=== PATIENT | female | born 1965 | race Caucasian/White ===

== ENCOUNTER 2016-06-11 20:40 | Inpatient (IN) | payer OTHER ==
[2016-06-11] MEDS ORDERED: NARCAN IV ONE (21:05)
--- NOTE | 2016-06-11 21:08 | PROVIDER DOCUMENTATION ---
HPI-General Adult - General Chief Complaint: Altered Mental Status Stated Complaint: AMS Time Seen by Provider: 06/11/16 20:54 Source: patient, EMS, RN notes reviewed, old records Allergies/Adverse Reactions: Patient Allergies Allergy/AdvReac Type Severity Reaction Status Date / Time sulfamethoxazole Allergy ITCHING Verified 06/11/16 20:44 [From Bactrim] trimethoprim [From Bactrim] Allergy ITCHING Verified 06/11/16 20:44 Home Medications: Amitriptyline HCl 50 mg PO QHS 11/29/15 Clonazepam 0.5 mg PO QHS 11/29/15 Escitalopram Oxalate [Lexapro] 20 mg PO DAILY 11/29/15 Ferrous Sulfate 325 mg PO DAILY 11/29/15 Losartan Potassium 50 mg PO TID 11/29/15 Metoprolol Tartrate 50 mg PO BID 11/29/15 Pregabalin [Lyrica] 100 mg PO QHS 11/29/15 ATORVAstatin [Lipitor] 80 mg PO DAILY 11/30/15 Aspirin [Ecotrin] 325 mg PO DAILY 11/30/15 Clopidogrel Bisulfate [Plavix] 75 mg PO DAILY 11/30/15 Desmopressin Acetate [Ddavp] 0.2 mg PO DAILY 11/30/15 Fenofibrate [Tricor] 145 mg PO DAILY 11/30/15 Furosemide [Lasix] 20 mg PO BID 11/30/15 Hydralazine HCl 25 tab PO TID 11/30/15 Pantoprazole [Protonix] 40 tab PO DAILY 11/30/15 Ropinirole HCl [Requip] 1 mg PO QHS 11/30/15 Clonidine [Catapres] 0.1 mg PO PRN PRN 05/23/16 Diclofenac Potassium 50 mg PO BID 05/23/16 Hydroxyzine HCl 25 mg PO PRN PRN 05/23/16 Ibuprofen 800 mg PO TID PRN PRN 05/23/16 Promethazine [Phenergan] 25 mg PO Q6H PRN PRN 05/23/16 - History of Present Illness -Gen Adult Nature of Presenting Problems: Pt is a 50 y/o F c chief complaint of AMS. She was brought to the ER today by EMS after they were notified by her [employer] company. Per EMS, pt was naked at home and very lethargic. Their finger stick blood sugar showed >500. On arrival a the ER, pt is slow to respond and unable to answer orientation questions. Pt was seen at [facility] last night for complaint of lower back pain after falling forward from her wheelchair onto a bed. She was discharged last night c prescriptions for xanaflex, tylenol c codeine, and NSAIDs. Per nursing, pt's family last night had stated that pt has a h/o overdosing on prescription medications. Pt's hx includes CVA c L sided deficit and diabetes. Pt lives at home c family. Review of Systems - Adult - REVIEW OF SYSTEMS - ADULT ROS:: limited per condition Constitutional: reports: no symptoms reported Eyes: reports: no symptoms reported Ears, Nose, Mouth & Throat: reports: no symptoms reported Cardiovascular: reports: no symptoms reported Respiratory: reports: no symptoms reported Gastrointestinal: reports: no symptoms reported Genitourinary: reports: no symptoms reported Musculoskeletal: reports: no symptoms reported Integumentary: reports: no symptoms reported Neurological: reports: no symptoms reported Psychiatric: reports: no symptoms reported Endocrine: reports: no symptoms reported Hematologic/Lymphatic: reports: no symptoms reported Allergic/Immunologic: reports: no symptoms reported All Other Systems: Reviewed and Negative Past History - Adult - PAST MEDICAL HISTORY-ADULT Review of Records: reports: Old Records Reviewed, Nursing Assessment Review, Medications Reviewed, Social history reviewed & non-contributory. Major Childhood Illnesses: reports: denies history Cardiovascular: reports: CAD, HTN, palpitations, PVD Respiratory: reports: COPD Gastrointestinal: reports: GERD Obstetrical/Gynecological: reports: denies history Genitourinary: reports: denies history Musculoskeletal: reports: chronic pain, fibromyalgia Neurological: reports: CVA Psychiatric: reports: anxiety, depression Endocrine/Immune: reports: Diabetes Other Conditions: reports: denies history - PRIOR SURGERIES/PROCEDURES Surgical/Procedure History: reports: reviewed, not pertinent - PRIOR HOSPITALIZATIONS Prior Hospitalizations: reports: none - IMMUNIZATION STATUS Childhood Immunizations: See Nurse Assessment Flu Vaccine: See Nurse Assessment - FAMILY HISTORY Family History: reviewed, not pertinent Physical Exam-General - PHYSICAL EXAM-ADULT Initial Vital Signs Reviewed: Yes - CONSTITUTIONAL General Appearance: moderate distress, obese, slow to respond - EYES Eyes: pink conjunctivae, other (sluggish pupil response, disconjugate gaze) - HEAD, EARS, NOSE, MOUTH & THROAT HENMT: normocephalic/atraumatic, moist mucous membranes, normal ENT inspection - NECK Neck: non-tender - RESPIRATORY Respiratory: chest non-tender, lungs clear, normal breath sounds - CARDIOVASCULAR Cardiovascular: normal peripheral pulses, regular rate, rhythm, no edema - GASTROINTESTINAL (ABDOMEN) Abdominal Exam: normal bowel sounds, non tender, soft - LYMPHATIC Lymphatic: no adenopathy - MUSCULOSKELETAL Back Exam: normal inspection, no CVA tenderness, no vertebral tenderness Extremity: non-tender - SKIN Integumentary: normal color, normal turgor, warm/dry - NEUROLOGIC Neurologic: other (pt unable to participate in neuro exam due to ams) - PSYCHIATRIC Psych/Mental Status: other (pt altered and unable to assess psych) Progress - PLAN OF CARE/RESULTS Progress/Plan/Lab Results: Orders Category Date Time Status Admit - [facility] Routine AdmDCTranf 06/11/16 23:15 Ordered Activity - Strict Bedrest ORDERED Care 06/11/16 23:15 Active Apply Mechanical Device [QM] ORDERED Care 06/11/16 23:17 Active Call Admitting on Arrival AT ADMISSION Care 06/11/16 23:15 Active Cardiac Monitoring DIRECTED Care 06/11/16 21:02 Active Finger Stick Blood Sugar (ED) DIRECTED Care 06/11/16 21:02 Active Finger Stick Blood Sugar (ED) Q 4-HR ASSESS Care 06/11/16 23:18 [address] [place] Insertion ORDERED Care 06/11/16 21:19 Active Neurological Check q4h Care 06/11/16 23:15 Active Oxygen Therapy- ED Nursing DIRECTED Care 06/11/16 21:02 Active Saline Loc NOW Care 06/11/16 21:02 Active Vital Signs Order ROUTINE Care 06/11/16 23:15 Active Diabetic Diet Diet 06/11/16 23:16 Active CHEST-1 VIEW [RAD] Stat Exams 06/11/16 21:03 Taken HEAD W/O CONTRAST [CT] Stat Exams 06/11/16 21:03 Taken ABG [RESP] Routine Lab 06/11/16 21:31 Completed ACETONE SERUM [CHEM] Stat Lab 06/11/16 21:17 Completed ALCOHOL BLOOD Stat Lab 06/11/16 21:17 Completed CBC WITH ELECTRONIC DIFF [HEME] Stat Lab 06/11/16 21:17 Completed COMPREHENSIVE METABOLIC PANEL [CHEM] Stat Lab 06/11/16 21:17 Completed LACTATE, PLASMA [CHEM] Stat Lab 06/11/16 21:17 Completed [address]IME WITH INR PL [COAG] Stat Lab 06/11/16 21:[address] [COAG] Stat Lab 06/11/16 21:17 Completed TROPONIN T Stat Lab 06/11/16 21:[address] W/POSS RFLX CULT [URINALYSIS] Stat Lab 06/11/16 21:17 Completed URINE CULTURE [RM] Routine Lab 06/11/16 21:55 Ordered URINE DRUG SCREEN PL Stat Lab 06/11/16 21:17 Completed 0.9% Sodium Chloride Inj [Ns] 1,000 ml Med 06/11/16 23:15 Ordered IV 90 mls/hr 0.9% Sodium Chloride Inj [Ns] 1,000 ml Med 06/11/16 22:24 Active IV 999 mls/hr CefTRIAXONE 1 GM/NS [Rocephin 1 gm/Ns] 50 ml Med 06/11/16 23:13 Active IV NOW Clindamycin 600 mg/Ns 50 ml Med 06/11/16 23:13 Active IV NOW Insulin Human Reg Dose ([address] [Humulin R Dose ([facility] Med 06/11/16 23:07 Discontinued )] 1 dose .ROUTE .STK-MED ONE Insulin Human Regular ([facility] [Humulin R ([facility])] Med 06/11/16 23:17 Discontinued See Protocol IV NOW ONE Insulin Human Regular [Humulin R] Med 06/11/16 22:24 Discontinued 10 unit IV NOW ONE Naloxone [Narcan] Med 06/11/16 21:05 Discontinued 0.2 mg IV NOW ONE Ondansetron [Zofran] Med 06/11/16 23:15 Active 4 mg IV Q4H PRN PRN Pulse Oximetry Stat Oth 06/11/16 21:02 Completed Telemetry [OM.EQ] Routine Oth 06/11/16 23:15 Active EKG [EKG] Stat Ther 06/11/16 21:02 Draft Laboratory Tests 06/11/16 06/11/16 06/11/16 21:17 21:17 21:17 WBC RBC Hgb Hct MCV MCH MCHC RDW Std Deviation Plt Count MPV Immature Gran % (Auto) Neut % (Auto) Lymph % (Auto) [place] % (Auto) Eos % (Auto) Baso % (Auto) Immature Gran # (Auto) Neut # (Auto) Lymph # (Auto) [place] # (Auto) Eos # (Auto) Baso # (Auto) PT INR APTT (Factor Assay) Specimen Type Sample Site pH pCO2 pO2 HCO3 Base Excess Oxyhemoglobin ABG O2 Sat (Calculated) ABG O2 Saturation ABG Carboxyhemoglobin ABG Methemoglobin Keyon Test A-a O2 Difference Total Hemoglobin Lactate Liter Flow Blood Gas Modality FiO2 % Sodium 127 L Potassium 5.0 Chloride 88 L Carbon Dioxide 23 L Anion Gap 16 BUN 34 H Creatinine 1.4 H Estimated GFR/1.73 m2 39 BUN/Creatinine Ratio 24 Glucose 755 H* Calculated Osmolality 299 Calcium 10.6 H Total Bilirubin 0.80 AST 28 ALT 38 H Alkaline Phosphatase 106 H Troponin T < 0.010 Total Protein 7.4 Albumin 4.2 Globulin 3.0 Albumin/Globulin Ratio 1.0 Plasma Lactate 3.5 H Urine Source Urine Color Urine Clarity Urine pH Ur Specific Gill Urine Protein Urine Ketones Urine Blood Urine Nitrite Urine Bilirubin Urine Urobilinogen Urine Microscopic RBC Urine WBC Urine Microscopic WBC Ur Epithelial Cells Urine Bacteria Urine Glucose Urine Opiates Screen Ur Oxycodone Screen Urine Methadone Screen Ur Barbituates Screen Ur Tricyclics Screen Ur Phencyclidine Scrn Ur Amphetamines Screen U Methamphetamines Scrn Urine MDMA Screen U Benzodiazepines Scrn Urine Cocaine Screen U Cannabinoids Screen Plasma/Serum Ethyl Alc Acetone Level 06/11/16 06/11/16 06/11/16 21:17 21:17 21:17 WBC 11.17 H RBC 4.14 L Hgb 11.3 L Hct 33.6 L MCV 81.2 MCH 27.3 MCHC 33.6 RDW Std Deviation 12.9 Plt Count 235 MPV 11.1 H Immature Gran % (Auto) 0.2 Neut % (Auto) 83.9 H Lymph % (Auto) 7.7 L [place] % (Auto) 8.1 Eos % (Auto) 0.1 Baso % (Auto) 0.0 Immature Gran # (Auto) 0.02 Neut # (Auto) 9.38 H Lymph # (Auto) 0.86 L [place] # (Auto) 0.90 H Eos # (Auto) 0.01 Baso # (Auto) 0.00 PT 14.1 INR 1.06 APTT (Factor Assay) 31.7 Specimen Type Sample Site pH pCO2 pO2 HCO3 Base Excess Oxyhemoglobin ABG O2 Sat (Calculated) ABG O2 Saturation ABG Carboxyhemoglobin ABG Methemoglobin Keyon Test A-a O2 Difference Total Hemoglobin Lactate Liter Flow Blood Gas Modality FiO2 % Sodium Potassium Chloride Carbon Dioxide Anion Gap BUN Creatinine Estimated GFR/1.73 m2 BUN/Creatinine Ratio Glucose Calculated Osmolality Calcium Total Bilirubin AST ALT Alkaline Phosphatase Troponin T Total Protein Albumin Globulin Albumin/Globulin Ratio Plasma Lactate Urine Source Urine Color Urine Clarity Urine pH Ur Specific Gill Urine Protein Urine Ketones Urine Blood Urine Nitrite Urine Bilirubin Urine Urobilinogen Urine Microscopic RBC Urine WBC Urine Microscopic WBC Ur Epithelial Cells Urine Bacteria Urine Glucose Urine Opiates Screen Ur Oxycodone Screen Urine Methadone Screen Ur Barbituates Screen Ur Tricyclics Screen Ur Phencyclidine Scrn Ur Amphetamines Screen U Methamphetamines Scrn Urine MDMA Screen U Benzodiazepines Scrn Urine Cocaine Screen U Cannabinoids Screen Plasma/Serum Ethyl Alc Acetone Level 06/11/16 06/11/16 06/11/16 21:17 21:17 21:17 WBC RBC Hgb Hct MCV MCH MCHC RDW Std Deviation Plt Count MPV Immature Gran % (Auto) Neut % (Auto) Lymph % (Auto) [place] % (Auto) Eos % (Auto) Baso % (Auto) Immature Gran # (Auto) Neut # (Auto) Lymph # (Auto) [place] # (Auto) Eos # (Auto) Baso # (Auto) PT INR APTT (Factor Assay) Specimen Type Sample Site pH pCO2 pO2 HCO3 Base Excess Oxyhemoglobin ABG O2 Sat (Calculated) ABG O2 Saturation ABG Carboxyhemoglobin ABG Methemoglobin Keyon Test A-a O2 Difference Total Hemoglobin Lactate Liter Flow Blood Gas Modality FiO2 % Sodium Potassium Chloride Carbon Dioxide Anion Gap BUN Creatinine Estimated GFR/1.73 m2 BUN/Creatinine Ratio Glucose Calculated Osmolality Calcium Total Bilirubin AST ALT Alkaline Phosphatase Troponin T Total Protein Albumin Globulin Albumin/Globulin Ratio Plasma Lactate Urine Source CATH Urine Color YELLOW Urine Clarity CLEAR Urine pH 5.0 Ur Specific Gill 1.005 Urine Protein TRACE A Urine Ketones NEGATIVE Urine Blood 4+ Urine Nitrite NEGATIVE Urine Bilirubin NEGATIVE Urine Urobilinogen NORMAL Urine Microscopic RBC 10-20 A Urine WBC TRACE A Urine Microscopic WBC <10 Ur Epithelial Cells <10 Urine Bacteria 2+ Urine Glucose 3+(500 mg/dL) A Urine Opiates Screen PRESUMPTIVE POSITIVE A Ur Oxycodone Screen PRESUMPTIVE POSITIVE A Urine Methadone Screen NONE DETECTED Ur Barbituates Screen NONE DETECTED Ur Tricyclics Screen PRESUMPTIVE POSITIVE A Ur Phencyclidine Scrn NONE DETECTED Ur Amphetamines Screen NONE DETECTED U Methamphetamines Scrn NONE DETECTED Urine MDMA Screen NONE DETECTED U Benzodiazepines Scrn NONE DETECTED Urine Cocaine Screen NONE DETECTED U Cannabinoids Screen NONE DETECTED Plasma/Serum Ethyl Alc Acetone Level NEGATIVE 06/11/16 21:31 WBC RBC Hgb Hct MCV MCH MCHC RDW Std Deviation Plt Count MPV Immature Gran % (Auto) Neut % (Auto) Lymph % (Auto) [place] % (Auto) Eos % (Auto) Baso % (Auto) Immature Gran # (Auto) Neut # (Auto) Lymph # (Auto) [place] # (Auto) Eos # (Auto) Baso # (Auto) PT INR APTT (Factor Assay) Specimen Type ARTERIAL Sample Site L RADIAL pH 7.35 pCO2 44 pO2 87 HCO3 23.8 Base Excess -1.4 Oxyhemoglobin 93.9 L ABG O2 Sat (Calculated) 14.8 L ABG O2 Saturation 94.3 L ABG Carboxyhemoglobin 0.10 ABG Methemoglobin 0.3 Keyon Test YES A-a O2 Difference 58.0 Total Hemoglobin 11.1 L Lactate 3.20 H Liter Flow 2.0 Blood Gas Modality CANNULA FiO2 % 28.0 Sodium Potassium Chloride Carbon Dioxide Anion Gap BUN Creatinine Estimated GFR/1.73 m2 BUN/Creatinine Ratio Glucose Calculated Osmolality Calcium Total Bilirubin AST ALT Alkaline Phosphatase Troponin T Total Protein Albumin Globulin Albumin/Globulin Ratio Plasma Lactate Urine Source Urine Color Urine Clarity Urine pH Ur Specific Gill Urine Protein Urine Ketones Urine Blood Urine Nitrite Urine Bilirubin Urine Urobilinogen Urine Microscopic RBC Urine WBC Urine Microscopic WBC Ur Epithelial Cells Urine Bacteria Urine Glucose Urine Opiates Screen Ur Oxycodone Screen Urine Methadone Screen Ur Barbituates Screen Ur Tricyclics Screen Ur Phencyclidine Scrn Ur Amphetamines Screen U Methamphetamines Scrn Urine MDMA Screen U Benzodiazepines Scrn Urine Cocaine Screen U Cannabinoids Screen Plasma/Serum Ethyl Alc Acetone Level Vital Signs - 24 hr 06/11/16 20:40 Temperature 98.3 F Pulse Rate 71 Respiratory 17 Rate Blood Pressure 106/62 O2 Sat by Pulse 91 L Oximetry - XRAY 1 XRAY Study: Chest Impression: Abnormal (bilateral lower lobe opacity - Dr. Park) - CONSULTS/PCP/HOSPITALIST Notification #1 *Consult/PCP/Hospitalist*: Dr. Neves (Hospitalist [facility]) Time Discussed: 23:07 Reason/Comments: Agreed c admission. Sliding scale insulin c finger stick q 4hrs Departure - Departure Time of Disposition Order: 23:14 DIAGNOSIS: Hyperglycemia Altered mental status Qualifiers: Altered mental status type: unspecified Qualified Code(s): R41.82 - Altered mental status, unspecified Disposition: ADMITTED INPATIENT 09 Certified Medical Emergency: Emergent Condition: Stable Attestation - Physician/ MILAN Attestation Patient care was provided by Advanced Practice Provider:: Yes Advanced Practice Provider:: Erickson Jorgensen Advanced Practice Provider documentation review:: The Mid-level provider documentation, treatment plan and medical decision making was reviewed by the physician who agrees with all treatment and medical decision making by the MLP. The physician spent face to face time with patient:: Yes
--- NOTE | 2016-06-11 21:28 | ED EKG INTERP ---
EKG Interpretation - EKG Time of EKG reading by physician:: 21:18 EKG Read and Signed by:: Juan Park EKG Interpretation (*Must complete 3 of following elements*): Abnormal Rate: 68 Rhythm: Sinus wtih 1st AV block QRS: LBB Prior EKG Comparison: unchanged from prior Comments: abnormal ECH Attestation - Scribe Verification/Attestation Scribe:: Wilbur Buitrago Acting as Scribe for:: Juan Park Scribe documention review:: This chart was documented by a scribe and accurately reflects the service the provider performed and the decisions made by the provider.
[2016-06-11 21:32] LABS: MANUAL DIFF NEEDED? NO; URINE SOURCE CATH
[2016-06-11 21:35] LABS: BE -1.4 mmoll (-3.0-3.0); BLOOD TYPE ARTERIAL; DRAW SITE L RADIAL; METHB 0.3 % (0.0-1.5); O2(CT) 14.8 mL/dL (15.0-23.0); PCO2(98.6) 44 mmHg (35-45); PO2(98.6) 87 mmHg (60-100); SAMPLE BLOOD; SAO2 94.3 % (95.0-100.0); THB 11.1 g/dL (11.5-17.4); pH(98.6) 7.35 (7.35-7.45)
[2016-06-11 21:36] LABS: EOS# 0.01 X1000 (0.0-0.7); EOS% 0.1 % (0.0-10.0); HEMATOCRIT 33.6 % (37.0-47.0); HEMOGLOBIN 11.3 g/dL (12.0-16.0); IMM GRAN# 0.02 X1000 (0.0-0.04); IMM GRAN% 0.2 % (0.0-0.5); LYMPH# 0.86 X1000 (1.2-3.4); LYMPH% 7.7 % (20.5-51.1); MCH 27.3 PG (27-31); MCHC 33.6 g/dL (33-37); MCV 81.2 FL (81-99); MONO% 8.1 % (1.7-9.3); MPV 11.1 FL (7.4-10.4); NEUT% 83.9 % (42.2-75.2); PLT 235 X1000 (130-400); RBC 4.14 XMIL (4.2-5.4)
[2016-06-11 21:38] LABS: ALLEN TEST YES; MODALITY CANNULA
[2016-06-11 21:43] LABS: UR AMPHETAMINES QUAL NONE DETECTED (NONE DETECT); UR BARBITUATES QUAL NONE DETECTED (NONE DETECT); UR BENZODIAZEPIN QUAL NONE DETECTED (NONE DETECT); UR COCAINE QUAL NONE DETECTED (NONE DETECT); UR MDMA QUAL NONE DETECTED (NONE DETECT); UR METHADONE QUAL NONE DETECTED (NONE DETECT); UR METHAMPHETAMINE QUAL NONE DETECTED (NONE DETECT); UR OPIATES QUAL PRESUMPTIVE POSITIVE (NONE DETECT); UR OXYCODONE QUAL PRESUMPTIVE POSITIVE (NONE DETECT)
[2016-06-11 21:44] LABS: UR CANNABINOIDS QUAL NONE DETECTED (NONE DETECT); UR PCP QUAL NONE DETECTED (NONE DETECT); UR TCA QUAL PRESUMPTIVE POSITIVE (NONE DETECT)
--- NOTE | 2016-06-11 21:45 | EKG Report ---
Test Performed on : 06/11/2016 9:18:13 PM Test Reason : AMS Blood Pressure : / mmHG Vent. Rate : 068 BPM Atrial Rate : 068 BPM P-R Int : 236 ms QRS Dur : 154 ms QT Int : 484 ms P-R-T Axes : 059 040 076 degrees QTc Int : 514 ms Sinus rhythm. with 1st degree AV block. Left bundle branch block Abnormal ECG No previous ECGs available Unconfirmed Result
[2016-06-11 21:51] LABS: BILIRUBIN URINE NEGATIVE (NEGATIVE); BLOOD URINE 4+ (NEGATIVE); CLARITY CLEAR (CLEAR); COLOR YELLOW; LEUKOCYTES URINE TRACE (NEGATIVE); NITRITE URINE NEGATIVE (NEGATIVE); PROTEIN URINE TRACE mg/dL (NEGATIVE); SP GRAVITY URINE 1.005; UROBILINOGEN URINE NORMAL
[2016-06-11 21:52] LABS: INR 1.06 (0.86-1.15); PROTIME 14.1 Seconds (12.1-15.5); URINE CULTURE PL NEEDED? YES; URINE EPITHELIAL CELLS <10 /HPF (<10); URINE WBC <10 /HPF (<10)
[2016-06-11 21:53] LABS: PTT PL 31.7 Seconds (22.6-43.9)
[2016-06-11 22:08] LABS: ALBUMIN 4.2 g/dL (3.5-5.0); CALCIUM 10.6 mg/dL (8.8-10.2); TOTAL BILIRUBIN 0.8 mg/dL (0.20-1.00); TOTAL PROTEIN 7.4 g/dL (6.3-8.3)
[2016-06-11] MEDS ORDERED: NS 1,000 ML IV ONE (22:24)
[2016-06-11] MEDS ORDERED: HUMULIN R IV ONE (22:24)
[2016-06-11] MEDS ORDERED: HUMULIN R DOSE (PARKWAY) ONE (23:07)
[2016-06-11] MEDS ORDERED: ROCEPHIN 1 GM/NS 50 ML IV ONE (23:13)
[2016-06-11] MEDS ORDERED: CLINDAMYCIN 600 MG/NS 50 ML IV ONE (23:13)
[2016-06-11] MEDS ORDERED: ZOFRAN IV PRN (23:15)
[2016-06-11] MEDS ORDERED: HUMULIN R (PARKWAY) IV ONE (23:17)
--- NOTE | 2016-06-12 00:44 | Diag Imaging Result Document ---
PROCEDURE NAME: HEAD W/O CONTRAST - 06/11/2016 STUDY: CT brain without. PROTOCOL: Dose reduction protocol. COMPARISON: Compared to 05/23/2016. No parenchymal hemorrhage. No epidural or subdural hematoma. No subarachnoid hemorrhage. Large area of encephalomalacia involving the right parietal lobe. There are multiple small old infarcts in the basal ganglia. No mass identified on this noncontrasted exam. There is diffuse atrophy. No sinus opacification. IMPRESSION: 1. No hemorrhage. 2. Multiple old bilateral infarcts similar to the prior exam. 3. Atrophy. A preliminary report was given at 10:08 p.m.
[2016-06-12] MEDS ORDERED: CALMOSEPTINE OINTMENT TOP PRN (01:20)
[2016-06-12] MEDS: NS 1,000 ML IV SCH (02:11)
--- NOTE | 2016-06-12 08:12 | Diag Imaging Result Document ---
PROCEDURE NAME: CHEST-1 VIEW - 06/11/2016 ONE-VIEW CHEST: COMPARISON: 05/23/2016. FINDINGS: Heart size appears upper normal. There is stable left lower lung calcified granuloma from old granulomatous disease. There is apparent mild scarring adjacent to the left heart border. There are no acute changes identified. IMPRESSION: No evidence of acute disease.
[2016-06-12] MEDS: HUMALOG DOSE (PARKWAY) SUBQ SCH ×3 (12:11→21:57)
--- NOTE | 2016-06-12 14:29 | HISTORY AND PHYSICAL ---
PRIMARY CARE PHYSICIAN: Dr. Deejay Rodriguez. CHIEF COMPLAINT: Altered mental status and elevated blood sugar. HISTORY OF PRESENTING ILLNESS: This is a 50-year-old female, who presented to [facility] [place] via EMS after they were notified by her [employer] company. When EMS arrived, she was naked at the home and very lethargic. Fingerstick blood sugar showed greater than 500. On arrival to the ER, the patient was slow to respond and unable to answer orientation questions. Had been seen at the [facility] ER the night before with complaints of low back pain after falling forward from her wheelchair onto a bed. Discharged with prescriptions. Per nursing, the patient's family had stated that the patient had a history of overdosing on prescription medications. When she arrived to the emergency room, her blood sugar per her CMP was 755 with a sodium of 127. Creatinine was 1.4. She had a plasma lactate level of 3.5. She was given a total of 1 L of normal saline. Clindamycin 600 mg IV x1. Rocephin 1 gram IV x1. She was admitted for further evaluation and treatment. 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 On the CVA , she has left- sided weakness. PAST SURGICAL HISTORY: Lumpectomy from her right breast cancer, hysterectomy, and left-sided carotid artery stent. FAMILY HISTORY: Noncontributory. SOCIAL HISTORY: She currently lives with her son. She is disabled. Denies any tobacco, alcohol, or illicit drug use, but was a former smoker. ALLERGIES: Sulfa. HOME MEDICATIONS: We need to obtain a current list and then restart as appropriate. LABORATORY DATA: Showed a white blood cell count of 11.17, hemoglobin 11.3, hematocrit 33.6, platelets 235. PT/INR of 14.1/1.06. ABG with a pH of 7.35, pCO2 44, PO2 88, bicarbonate 23.8. Sodium 127, potassium 5, chloride 88, CO2 23, BUN of 34, creatinine 1.4, glucose was 755, alkaline phosphatase 106. Troponin less than 0.010. Plasma lactate 3.5. Urinalysis showed 4+ blood, negative nitrites, trace white blood cells, and 2+ bacteria. Negative ketones. X-RAY DATA: Chest x-ray showed no evidence of acute disease. CT of the head showed no hemorrhage. Multiple old bilateral infarcts similar to prior exam and atrophy. EKG: Sinus rhythm with a first-degree AV block at 68. REVIEW OF SYSTEMS: She denied any fever, chills, blurred vision, dizziness, chest pain, coughing, shortness of breath. She was positive for right upper quadrant abdominal pain. States she had some new shortness of breath three weeks ago. Diarrhea x3 days. Denied any nausea, vomiting, constipation. States she has had frequency and intermittent incontinence. Low back pain. PHYSICAL EXAMINATION: VITAL SIGNS: On arrival, she had a temperature of 98.3 degrees, pulse 71, respirations 17, blood pressure 106/62, satting 91% on room air. Currently, temp 98.4 degrees, pulse 70, respirations 20, blood pressure 124/88, satting 98% to 100% on 2 L via nasal cannula. GENERAL: This is a 50-year-old female, who is lying in the bed and answers questions appropriately. HEENT: Normocephalic and atraumatic. Pupils are equal, round, reactive to light. The extraocular movements are intact. The oropharynx and nares are clear. NECK: Supple. HEART: With regular rate and rhythm. No murmurs, rubs, or gallops. ABDOMEN: Soft. There is some tenderness to palpation to her right upper and lower quadrants. Bowel sounds are present x4 quadrants. EXTREMITIES: No clubbing, cyanosis, or edema. NEUROLOGICAL: The cranial nerves 2-12 are grossly intact. ASSESSMENT: 1. Altered mental status. 2. Diabetes type 2 with hyperglycemia. Medical noncompliance. 3. Acute kidney injury. 4. Hyponatremia, secondary to her hyperglycemia. PLAN: She was admitted to the medical unit. Placed on telemetry, diabetic diet. She will be on n.p.o. after midnight for a complete abdominal ultrasound. We are obtaining a urine culture, but will continue her Rocephin 1 gram IV q. 24 hours, normal saline at 90 mL an hour. Pattern blood sugars with sliding scale insulin. Zofran 4 mg IV q. 4 hours p.r.n. She received Narcan 0.2 mg IV x1 in the emergency room. When she became more alert after this, we are going to hold any pain medicines at this time and recheck a CBC, CMP in the a.m. Will place SCDs for DVT prophylaxis. Has an indwelling [place] catheter. Neuro checks q. 4 hours for the first 24 hours. Dictated by [place] Bernard for Blanco Neves MD agree with above, doing well, pt examined APENOT MTDD
[2016-06-12] MEDS ORDERED: CATAPRES PO PRN (16:09)
[2016-06-12] MEDS: SODIUM CHLORIDE 0.9% INJ SCH (20:11)
[2016-06-12] MEDS: TORADOL IV PRN (20:11)
[2016-06-12] MEDS: PROTONIX IV SCH (20:12)
[2016-06-12] MEDS ORDERED: VOLTAREN PO SCH (21:00)
[2016-06-12] MEDS: KLONOPIN PO SCH (21:57)
[2016-06-12] MEDS: ELAVIL PO SCH (21:57)
[2016-06-12] MEDS: LYRICA PO SCH (21:57)
[2016-06-12] MEDS: ROCEPHIN 1 GM/NS 50 ML IV SCH ×2 (21:58→23:44)
[2016-06-12] MEDS: REQUIP PO SCH (21:58)
[2016-06-12] MEDS: DULERA 200 MCG/5 MCG INHALER INH SCH (23:02)
[2016-06-13] MEDS: NS 1,000 ML IV SCH (03:31)
[2016-06-13 06:30] LABS: MANUAL DIFF NEEDED? NO
[2016-06-13] MEDS: HUMALOG DOSE (PARKWAY) SUBQ SCH ×4 (06:44→21:21)
[2016-06-13 06:46] LABS: BASO% 0.1 % (0.0-0.8); EOS# 0.17 X1000 (0.0-0.7); EOS% 2.5 % (0.0-10.0); HEMATOCRIT 34.1 % (37.0-47.0); HEMOGLOBIN 10.9 g/dL (12.0-16.0); IMM GRAN# 0.01 X1000 (0.0-0.04); IMM GRAN% 0.1 % (0.0-0.5); LYMPH# 2.01 X1000 (1.2-3.4); LYMPH% 29.8 % (20.5-51.1); MCH 26.8 PG (27-31); MONO# 0.64 X1000 (0.11-0.59); MONO% 9.5 % (1.7-9.3); MPV 10.6 FL (7.4-10.4); PLT 215 X1000 (130-400); RBC 4.06 XMIL (4.2-5.4)
[2016-06-13] MEDS ORDERED: HUMALOG DOSE (PARKWAY) SUBQ SCH (07:00)
[2016-06-13] MEDS ORDERED: PROTONIX PO SCH (07:00)
[2016-06-13 07:06] LABS: ALBUMIN 3.4 g/dL (3.5-5.0); CALCIUM 9.7 mg/dL (8.8-10.2); TOTAL BILIRUBIN 0.2 mg/dL (0.20-1.00); TOTAL PROTEIN 6.7 g/dL (6.3-8.3)
[2016-06-13 07:09] LABS: HEMOGLOBIN A1C 8.2 % (4.8-6.0)
[2016-06-13] MEDS: DULERA 200 MCG/5 MCG INHALER INH SCH ×2 (08:14→19:39)
[2016-06-13] MEDS: LEXAPRO PO SCH (10:01)
[2016-06-13] MEDS: TRICOR PO SCH (10:02)
[2016-06-13] MEDS: DDAVP PO SCH (10:02)
[2016-06-13] MEDS: LIPITOR PO SCH (10:02)
[2016-06-13] MEDS: PLAVIX PO SCH (10:03)
[2016-06-13] MEDS: NORVASC PO SCH (10:03)
[2016-06-13] MEDS: LOPRESSOR PO SCH (10:03)
[2016-06-13] MEDS: LASIX PO SCH (10:03)
[2016-06-13] MEDS: LOVAZA PO SCH (10:03)
--- NOTE | 2016-06-13 11:51 | PROGRESS NOTE ---
DATE: 06/13/2016 SUBJECTIVE: Patient has no focal complaints. OBJECTIVE: Vital Signs: Blood pressure 152/94, heart rate of 102, respiratory rate 18, temperature 98 degrees, 99% on 2 L. Cardiovascular: Regular rate and rhythm. Pulmonary: Bilateral breath sounds. Clear to auscultation. GI: Soft, nontender, nondistended. Bowel sounds are positive. LABORATORY DATA: White count 6, hemoglobin and hematocrit 10 and 34, platelets of 215. Chemistries: Creatinine is 1.1, 1.89 to 3.06. A1c is 8.2. PROBLEM LIST: 1. Uncontrolled diabetes. She is currently on lispro with meals. She is supposed to be on 20 units of Glargine. We will adjust her diabetes medications accordingly. 2. Hyponatremia, but she has what looks like a history of diabetes insipidus, because she is on DDAVP, so we will monitor that. 3. Abdominal pain. We are waiting on a right upper quadrant ultrasound. She is empirically on Rocephin I think for possible urinary tract infection, but that seems stable. She looks like she is appropriate I think for possible discharge, but patient would like to pursue inpatient rehab, because she is fairly weak and debilitated, cannot ambulate on her own. 4. Possible drug overdose. We are monitoring her pain medications very closely, trying to avoid any narcotics. She is already on Requip, Lyrica, Lexapro, Klonopin, Elavil, and we will continue to follow.
--- NOTE | 2016-06-13 11:56 | Diag Imaging Result Document ---
PROCEDURE NAME: US ABDOMEN-COMPLETE - 06/13/2016 ULTRASOUND ABDOMEN COMPLETE: INDICATION: Abdomen pain. FINDINGS: The abdominal aorta is of normal caliber. The pancreas is unremarkable. The liver appears normal in size and echotexture. The gallbladder is free of stones and sludge and has a normal caliber wall. The common bile duct measures 3.8 mm. The portal vein is patent with hepatopetal flow. The spleen appears normal. There is no hydronephrosis. The kidneys are unremarkable bilaterally. IMPRESSION: Normal abdominal ultrasound.
[2016-06-13] MEDS: ASPIRIN EC PO SCH (12:22)
[2016-06-13] MEDS: LANTUS INSULIN (PARKWAY) SUBQ SCH (12:23)
[2016-06-13] MEDS: TORADOL IV PRN ×2 (14:05→22:08)
[2016-06-13] MEDS: PROTONIX IV SCH (18:50)
[2016-06-13] MEDS: SODIUM CHLORIDE 0.9% INJ SCH (18:50)
[2016-06-13] MEDS: LYRICA PO SCH (21:13)
[2016-06-13] MEDS: KLONOPIN PO SCH (21:13)
[2016-06-13] MEDS: REQUIP PO SCH (21:13)
[2016-06-13] MEDS: ELAVIL PO SCH (21:14)
[2016-06-13] MEDS: ROCEPHIN 1 GM/NS 50 ML IV SCH (22:08)
[2016-06-14 05:16] LABS: HEMOGLOBIN 12.1 g/dL (12.0-16.0); MCH 27.1 PG (27-31); MCHC 32.7 g/dL (33-37); MPV 10.3 FL (7.4-10.4); RBC 4.46 XMIL (4.2-5.4)
[2016-06-14 05:32] LABS: AGAP 12; BUN 16 mg/dL (8-22); CALCIUM 9.8 mg/dL (8.8-10.2); CHLORIDE 94 mmol/L (98-107); COSMO 277; POTASSIUM 3.6 mmol/L (3.5-5.1); SODIUM 134 mmol/L (136-145); TCO2 28 mmol/L (25-35)
[2016-06-14] MEDS: HUMALOG DOSE (PARKWAY) SUBQ SCH ×4 (06:45→20:30)
[2016-06-14] MEDS: TORADOL IV PRN ×2 (06:52→13:20)
[2016-06-14] MEDS: LOVAZA PO SCH (07:59)
[2016-06-14] MEDS: LIPITOR PO SCH (07:59)
[2016-06-14] MEDS: NORVASC PO SCH (07:59)
[2016-06-14] MEDS: LANTUS INSULIN (PARKWAY) SUBQ SCH ×2 (08:00→20:30)
[2016-06-14] MEDS: ASPIRIN EC PO SCH (08:00)
[2016-06-14] MEDS: DDAVP PO SCH (08:00)
[2016-06-14] MEDS: LOPRESSOR PO SCH (08:00)
[2016-06-14] MEDS: PLAVIX PO SCH (08:00)
[2016-06-14] MEDS: TRICOR PO SCH (08:00)
[2016-06-14] MEDS: LASIX PO SCH ×2 (08:00→20:31)
[2016-06-14] MEDS: LEXAPRO PO SCH (08:00)
[2016-06-14] MEDS: DULERA 200 MCG/5 MCG INHALER INH SCH ×2 (08:15→20:05)
--- NOTE | 2016-06-14 15:02 | PROGRESS NOTE ---
DATE: 06/14/2016 OBJECTIVE: Blood pressure 139/72, heart rate of 72, respiratory rate of 14, temperature 99.3 degrees.Cardiovascular: Regular rate and rhythm. Pulmonary: Bilateral breath sounds. Clear to auscultation. GI: Soft, nontender, nondistended. Bowel sounds are positive. Extremities: No clubbing or cyanosis. Lymphatic exam: No peripheral edema. She has some nonpitting edema. LABORATORY DATA: White counts okay. Hemoglobin and hematocrit 12 and 37. Chemistries: Blood sugars still range 241 to 309. PROBLEM LIST: 1. Hyperglycemia, type 2 diabetes, insulin dependent. Will go up to her glargine at 26 b.i.d. and continue her sliding scale and follow. 2. Hypertension. Continue her regular medications. 3. History of CVA. Currently on regular medications. 4. Hyponatremia. Appears to be stable. 5. Drug overdose. We will continue her regular medications. She is requesting something for pain. We will do something low toxicity and follow. DISPOSITION: Pending her issues but plan is for rehab in the next 1-2 days.
[2016-06-14] MEDS: ULTRAM PO PRN (17:11)
[2016-06-14] MEDS: ELAVIL PO SCH (20:31)
[2016-06-14] MEDS: KLONOPIN PO SCH (20:31)
[2016-06-14] MEDS: REQUIP PO SCH (20:32)
[2016-06-14] MEDS: LYRICA PO SCH (20:33)
[2016-06-15] MEDS: PRILOSEC PO SCH ×2 (05:17→06:06)
[2016-06-15] MEDS: HUMALOG DOSE (PARKWAY) SUBQ SCH ×5 (05:18→20:32)
[2016-06-15 06:16] LABS: AGAP 11; BUN 18 mg/dL (8-22); CALCIUM 9.4 mg/dL (8.8-10.2); CHLORIDE 95 mmol/L (98-107); COSMO 278; POTASSIUM 3.3 mmol/L (3.5-5.1); SODIUM 136 mmol/L (136-145); TCO2 30 mmol/L (25-35)
[2016-06-15] MEDS: DDAVP PO SCH (09:23)
[2016-06-15] MEDS: PLAVIX PO SCH (09:23)
[2016-06-15] MEDS: LIPITOR PO SCH (09:23)
[2016-06-15] MEDS: LASIX PO SCH ×2 (09:23→20:31)
[2016-06-15] MEDS: LOPRESSOR PO SCH (09:24)
[2016-06-15] MEDS: LOVAZA PO SCH (09:24)
[2016-06-15] MEDS: LEXAPRO PO SCH (09:24)
[2016-06-15] MEDS: NORVASC PO SCH (09:24)
[2016-06-15] MEDS: TRICOR PO SCH (09:24)
[2016-06-15] MEDS: ASPIRIN EC PO SCH (09:25)
[2016-06-15] MEDS: ULTRAM PO PRN ×3 (09:25→20:31)
[2016-06-15] MEDS: LANTUS INSULIN (PARKWAY) SUBQ SCH ×2 (09:26→20:31)
[2016-06-15] MEDS: TORADOL IV PRN ×2 (12:07→20:33)
[2016-06-15] MEDS ORDERED: KLOR-CON PO ONE (12:42)
[2016-06-15] MEDS: DULERA 200 MCG/5 MCG INHALER INH SCH ×2 (13:00→20:24)
[2016-06-15] MEDS: COZAAR PO SCH (13:47)
--- NOTE | 2016-06-15 15:00 | PROGRESS NOTE ---
DATE: 06/15/2016 SUBJECTIVE: Patient has no complaints. She looks improved. OBJECTIVE: Vital signs: Blood pressure 161/69, heart rate 78, respiratory 16, temperature 99 degrees, 94 on room air. Cardiovascular: Regular rate and rhythm. Pulmonary: Bilateral breath sounds. Clear to auscultation. GI: Soft, nontender, nondistended. Bowel sounds are positive. Extremities: No clubbing or cyanosis. Lymphatics: She had some nonpitting edema. LABORATORY DATA: Potassium 3.3. Sugars have now decreased to 165-175 which had previously been 200-300. PROBLEM LIST: 1. Hyperglycemia. Now fairly well controlled on her glargine just at her normal home dose which I am a little suspicious that she may not be very compliant with her insulin at home. 2. Hypertension. I am going to hold her Norvasc just because she does have some lower extremity edema. She is also on Lyrica which may cause that as well. We have to kind of keep an eye on that. Her kidney function is normal. So, I am going to go up on her losartan dose. This will also help with her potassium. 3. Disposition. Likely to rehab tomorrow once she is stabilized. We will continue to follow very closely. I will likely go up on her losartan to 100 daily.
[2016-06-15] MEDS: REQUIP PO SCH (20:31)
[2016-06-15] MEDS: ELAVIL PO SCH (20:31)
[2016-06-15] MEDS: LYRICA PO SCH (20:31)
[2016-06-15] MEDS: KLONOPIN PO SCH (20:31)
[2016-06-16] MEDS: PRILOSEC PO SCH (06:14)
[2016-06-16] MEDS: ULTRAM PO PRN (06:14)
[2016-06-16] MEDS: HUMALOG DOSE (PARKWAY) SUBQ SCH ×2 (06:15→11:50)
[2016-06-16 06:55] LABS: AGAP 10; BUN 20 mg/dL (8-22); CALCIUM 9.5 mg/dL (8.8-10.2); CHLORIDE 95 mmol/L (98-107); COSMO 277; POTASSIUM 3.8 mmol/L (3.5-5.1); SODIUM 134 mmol/L (136-145); TCO2 29 mmol/L (25-35)
[2016-06-16] MEDS: DULERA 200 MCG/5 MCG INHALER INH SCH (08:29)
[2016-06-16] MEDS: DDAVP PO SCH (09:38)
[2016-06-16] MEDS: LEXAPRO PO SCH (09:38)
[2016-06-16] MEDS: LOVAZA PO SCH (09:38)
[2016-06-16] MEDS: LASIX PO SCH (09:39)
[2016-06-16] MEDS: LOPRESSOR PO SCH (09:39)
[2016-06-16] MEDS: ASPIRIN EC PO SCH (09:39)
[2016-06-16] MEDS: LIPITOR PO SCH (09:39)
[2016-06-16] MEDS: COZAAR PO SCH (09:39)
[2016-06-16] MEDS: TRICOR PO SCH (09:39)
[2016-06-16] MEDS: PLAVIX PO SCH (09:39)
[2016-06-16] MEDS: LANTUS INSULIN (PARKWAY) SUBQ SCH (09:40)
[2016-06-16] MEDS: TORADOL IV PRN (09:45)
[2016-06-16 11:12] VITALS: BP 148/58
--- NOTE | 2016-06-16 11:36 | DISCHARGE SUMMARY ---
ADMISSION DATE: 06/11/2016 DISCHARGE DATE: 06/16/2016 ADMISSION DIAGNOSIS: 1. Drug overdose, unintentional. 2. Altered mental status. 3. Noncompliance. 4. Type 2 diabetes. 5. Acute kidney injury. 6. Hyponatremia. DISCHARGE DIAGNOSES: 1. Unintentional drug overdose. 2. Significant hyperglycemia associated with type 2 diabetes with IV insulin. 3. Hypertension. 4. Medical noncompliance. HOSPITAL COURSE: Briefly, this is a 50-year-old female with history of CVA. She lives alone, very difficult to get up and around. She had a blood sugar of 755 when she came in. Creatinine 1.4. Lactate level was 3.5. She was given IV fluids, IV insulin, and her sugars improved. She had to be given Narcan in the ER because she was not very responsive and did wake up associated with that. The following day, her blood sugars improved just keeping her on her regular regimen; however, she did have some issues with bottoming out. I am suspicious that her sugars are not completely controlled on her regular medications because I do not think she takes her regular doses as she should. In any case, blood sugars stabilized prior to discharge, 197, 177, 238; overall have improved. She was felt stable for discharge. DISCHARGE MEDICATIONS: 1. Clonidine 0.1 daily. 2. Diclofenac 50 b.i.d. 3. Ventolin 2 q.6. 4. NovoLog 4 units with meals. 5. Lantus 26 units twice a day. 6. [place]-3 fatty acids daily. 7. Amitriptyline 50 daily. 8. Ecotrin 325 daily. 9. Plavix 75 daily. 10. DDAVP 0.2 daily. 11. Lexapro 20 daily. 12. Lasix 40 daily. 13. Lipitor 80 daily. 14. Metoprolol 50 daily. 15. Lyrica 100 at bedtime. 16. Protonix 40 daily. 17. Requip 1 daily. 18. TriCor 145 daily. 19. Klonopin 0.5 at bedtime. 20. Cozaar 100 daily. 21. Dulera b.i.d. Discharge diagnoses were stable. She is going to inpatient rehab at [facility]. She has limited access to resources at home. I am not sure how well she can take care of herself at home. This will need to be completely addressed prior to discharge from their facility. 35 minute discharge.
[2016-06-16] MEDS ORDERED: ELAVIL PO SCH (15:22)
[2016-06-17] MEDS ORDERED: LIPITOR PO SCH (21:00)
--- NOTE | 2016-07-21 10:43 | DISCHARGE SUMMARY ---
ADMISSION DATE: 06/11/2016 DISCHARGE DATE: 06/16/2016 DISCHARGE SUMMARY ADDENDUM: The patient had confusion on admission. Initially, it was felt that her glucose she had metabolic encephalopathy due to uncontrolled diabetes.
== END 2016-06-16 17:10 | DRG 637 ==
LOC: P.ED 20:40 → P.MEDSURG 23:22
PROVIDERS: ATTEND Internal Medicine
DX: E11.65 Type 2 diabetes mellitus with hyperglycemia (principal); G93.41 Metabolic encephalopathy; N17.9 Acute kidney failure, unspecified; E23.2 Diabetes insipidus; I69.354 Hemiplegia and hemiparesis following cerebral infarction affecting left non-dominant side; T50.901A Poisoning by unspecified drugs, medicaments and biological substances, accidental (unintentional), initial encounter; I11.0 Hypertensive heart disease with heart failure; I50.9 Heart failure, unspecified; E11.51 Type 2 diabetes mellitus with diabetic peripheral angiopathy without gangrene; I25.10 Atherosclerotic heart disease of native coronary artery without angina pectoris; J44.9 Chronic obstructive pulmonary disease, unspecified; Z85.3 Personal history of malignant neoplasm of breast; Z92.21 Personal history of antineoplastic chemotherapy; I65.21 Occlusion and stenosis of right carotid artery; Z87.891 Personal history of nicotine dependence; Z91.14 Patient's other noncompliance with medication regimen; G89.29 Other chronic pain; M54.2 Cervicalgia; F41.9 Anxiety disorder, unspecified; F32.9 Major depressive disorder, single episode, unspecified; Z79.02 Long term (current) use of antithrombotics/antiplatelets; Z79.899 Other long term (current) drug therapy; Z79.4 Long term (current) use of insulin; M25.512 Pain in left shoulder
CPT/HCPCS: 36415; 51702; 70450; 71010; 76700; 80048; 80053; 80305; 81001; 82009; 82805; 82948; 83036; 83605; 84484; 85025; 85027; 85610; 85730; 87088; 93005; 94761; 96361; 96365; 96375; C9113; G0480; J0696; J1815; J1885; J2310; J7030; S0077; 80320; 94640-76; S0164

== ENCOUNTER 2016-07-30 07:20 | Observation (INO) | payer OTHER ==
[2016-07-30 07:50] LABS: MANUAL DIFF NEEDED? NO
--- NOTE | 2016-07-30 07:52 | PROVIDER DOCUMENTATION ---
HPI-Chest Pain <Lizzie Penny - Last Filed: 07/30/16 12:33> - General Source: patient - History of Present Illness-CP Location: reports: substernal Chest Pain Radiation: reports: no radiation Quality of Pain: reports: pressure, sharp Severity in ED: severe Onset/Duration: 1-3 hours ago Timing: still present Context/Activities at Onset: reports: sleep Modifying Factors: improves with: nothing Associated Symptoms: reports: nausea. denies: diaphoresis, fever/chills, shortness of breath, vomiting Nitro Today/Relief: provided by EMS Aspirin Treatment Today: provided by EMS Prior Chest Pain/Cardiac Workup: reports: other (see HPI) Similar Symptoms Previously?: No Recently Seen Here or By Another Healthcare Provider: No <Roddy Avina - Last Filed: 08/01/16 10:52> - General Chief Complaint: Chest Pain Stated Complaint: chest pain Time Seen by Provider: 07/30/16 07:44 Allergies/Adverse Reactions: Patient Allergies Allergy/AdvReac Type Severity Reaction Status Date / Time sulfamethoxazole Allergy ITCHING Verified 06/11/16 20:44 [From Bactrim] trimethoprim [From Bactrim] Allergy ITCHING Verified 06/11/16 20:44 Home Medications: Home Medication List Medication Instructions Recorded Confirmed Last Taken Type Amitriptyline HCl 50 mg PO QHS 11/29/15 07/31/16 07/29/16 History ATORVAstatin [Lipitor] 80 mg PO DAILY 11/30/15 07/31/16 07/29/16 History Aspirin [Ecotrin] 325 mg PO DAILY 11/30/15 07/31/16 07/29/16 History Clopidogrel Bisulfate [Plavix] 75 mg PO DAILY 11/30/15 07/31/16 07/29/16 History Desmopressin Acetate [Ddavp] 0.2 mg PO DAILY 11/30/15 07/31/16 07/29/16 History Fenofibrate [Tricor] 145 mg PO DAILY 11/30/15 07/31/16 07/29/16 History Furosemide [Lasix] 40 mg PO DAILY 11/30/15 07/31/16 07/29/16 History Pantoprazole [Protonix] 40 tab PO DAILY 11/30/15 07/31/16 07/29/16 History Ropinirole HCl [Requip] 1 mg PO QHS 11/30/15 07/31/16 07/29/16 History Mometasone/Formoterol [Dulera 200 2 puff INH RTBID #1 inhaler 02/26/16 07/31/16 07/29/16 Rx Mcg/5 Mcg Inhaler] Diclofenac Potassium 50 mg PO BID 05/23/16 07/31/16 07/29/16 History Albuterol Sulfate Inhaler 2 puff INH Q6H PRN PRN 06/12/16 07/31/16 07/29/16 History [Ventolin Hfa] Insulin Aspart [Novolog] 4 unit SQ AC 06/12/16 07/31/16 07/29/16 History Insulin Glargine [Lantus] 26 unit SUBQ AC + HS 06/12/16 07/31/16 07/29/16 History [place]-3 Acid Ethyl Esters 2 gm PO DAILY 06/12/16 07/31/16 07/29/16 History Pregabalin [Lyrica] 100 mg PO QHS #30 capsule 06/16/16 07/31/16 07/28/16 Rx Amlodipine Besylate [Norvasc] 5 mg PO BID 07/30/16 07/31/16 07/29/16 History Duloxetine [Cymbalta] 60 mg PO DAILY 07/30/16 07/31/16 07/29/16 History Metoprolol [Lopressor] 50 mg PO DAILY 07/30/16 07/31/16 07/29/16 History Tizanidine HCl [Zanaflex] 2 mg PO DAILY 07/31/16 07/31/16 07/29/16 History - History of Present Illness-CP Nature of Presenting Problem: awakened this am by sharp, pressure lower chest pain, substernal, non radiating , nothing makes better, nothing makes worse. No diaphoresis, no palpitations, no increased SOB. Had some nausea, no vomiting. Has seen Dr Garzon, but has been 5 -6 yrs. No known heart problems. Quit smoking 1-2 years ago (Roddy Avina) Review of Systems - Adult - REVIEW OF SYSTEMS - ADULT Constitutional: reports: no symptoms reported Eyes: reports: no symptoms reported Ears, Nose, Mouth & Throat: reports: no symptoms reported Cardiovascular: reports: see HPI Respiratory: reports: no symptoms reported. denies: cough Gastrointestinal: reports: see HPI Genitourinary: reports: no symptoms reported Musculoskeletal: reports: no symptoms reported Integumentary: reports: no symptoms reported Neurological: reports: no symptoms reported Psychiatric: reports: no symptoms reported Endocrine: reports: no symptoms reported Hematologic/Lymphatic: reports: no symptoms reported Allergic/Immunologic: reports: no symptoms reported All Other Systems: Reviewed and Negative <Roddy Avina - Last Filed: 08/01/16 10:52> Past History - Adult - PAST MEDICAL HISTORY-ADULT Review of Records: reports: Medications Reviewed Major Childhood Illnesses: reports: denies history Cardiovascular: reports: CAD, HTN, palpitations, PVD Respiratory: reports: COPD Gastrointestinal: reports: GERD Obstetrical/Gynecological: reports: denies history Genitourinary: reports: denies history Musculoskeletal: reports: chronic pain, fibromyalgia Neurological: reports: CVA Psychiatric: reports: anxiety, depression Endocrine/Immune: reports: Diabetes Other Conditions: reports: denies history - PRIOR SURGERIES/PROCEDURES Surgical/Procedure History: reports: reviewed, not pertinent - PRIOR HOSPITALIZATIONS Prior Hospitalizations: reports: none - IMMUNIZATION STATUS Childhood Immunizations: See Nurse Assessment Flu Vaccine: See Nurse Assessment - FAMILY HISTORY Family History: reviewed, not pertinent - SOCIAL HISTORY Smoking: quit greater than 1 year <Roddy Avina - Last Filed: 08/01/16 10:52> Physical Exam-General - PHYSICAL EXAM-ADULT Initial Vital Signs Reviewed: Yes - CONSTITUTIONAL General Appearance: appears well, alert, mild distress - EYES Eyes: PERRL/EOMI, pink conjunctivae - HEAD, EARS, NOSE, MOUTH & THROAT HENMT: normocephalic/atraumatic, moist mucous membranes, normal ENT inspection, pharynx normal - NECK Neck: full range of motion, supple - RESPIRATORY Respiratory: lungs clear, normal breath sounds - CARDIOVASCULAR Cardiovascular: regular rate, rhythm, no edema, no gallop, no murmur - GASTROINTESTINAL (ABDOMEN) Abdominal Exam: non tender, soft - GENITOURINARY Female Genitalia/Pelvic Exam: deferred Rectal Exam: deferred - MUSCULOSKELETAL Back Exam: normal inspection, no CVA tenderness, no vertebral tenderness Extremity: normal range of motion, non-tender - SKIN Integumentary: normal color, normal turgor, warm/dry - 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, grossly normal, no motor/sensory deficits - PSYCHIATRIC Psych/Mental Status: normal mood/affect, normal thought content, normal thought process, oriented x 3 <Roddy Avina - Last Filed: 08/01/16 10:52> Progress - EKG 1 Time of EKG reading by physician:: 11:25 EKG Read and Signed by:: Roddy Avina EKG Interpretation (*Must complete 3 of following elements*): Abnormal Rate: 81 Rhythm: sinus rhythm with 1st degree AV block Comments: LBBB <Lizzie Penny - Last Filed: 07/30/16 12:33> - XRAY 1 XRAY Study: Chest Impression: Normal - CONSULTS/PCP/HOSPITALIST Notification #1 *Consult/PCP/Hospitalist*: Chest pain Time Discussed: 09:10 Consult Disposition: Admit <Roddy Avina - Last Filed: 08/01/16 10:52> - PLAN OF CARE/RESULTS Progress/Plan/Lab Results: Orders Category Date Time Status CHEST-PORTABLE [RAD] Stat Exams 07/30/16 07:26 Taken CBC WITH ELECTRONIC DIFF [HEME] Stat Lab 07/30/16 07:45 Completed CK PROFILE [SP CHEM] Stat Lab 07/30/16 07:45 Results COMPREHENSIVE METABOLIC PANEL [CHEM] Stat Lab 07/30/16 07:45 Completed DIGOXIN [TDM] Stat Lab 07/30/16 07:45 Completed DIRECT LDL [LIPIDS] Stat Lab 07/30/16 07:45 Completed PRO B-NATRIURETIC PEPTIDE Stat Lab 07/30/16 07:45 Completed [address]IME WITH INR PL [COAG] Stat Lab 07/30/16 07:[address] [COAG] Stat Lab 07/30/16 07:45 Completed TROPONIN T Stat Lab 07/30/16 07:45 Completed Morphine Med 07/30/16 07:56 Discontinued 4 mg IV NOW ONE Nitroglycerin Med 07/30/16 07:56 Discontinued 1 inch TOP NOW ONE Ondansetron [Zofran] Med 07/30/16 07:56 Discontinued 8 mg IV NOW ONE EKG [EKG] Stat Ther 07/30/16 07:26 Ordered Vital Signs Pulse Resp BP Pulse Ox 07/30/16 07:21 83 14 152/75 95 sulfamethoxazole [From Bactrim] Allergy (Verified 06/11/16 20:44) ITCHING trimethoprim [From Bactrim] Allergy (Verified 06/11/16 20:44) ITCHING Amitriptyline HCl 50 mg PO QHS 11/29/15 Escitalopram Oxalate [Lexapro] 20 mg PO DAILY 11/29/15 Metoprolol Tartrate 50 mg PO DAILY 11/29/15 ATORVAstatin [Lipitor] 80 mg PO DAILY 11/30/15 Aspirin [Ecotrin] 325 mg PO DAILY 11/30/15 Clopidogrel Bisulfate [Plavix] 75 mg PO DAILY 11/30/15 Desmopressin Acetate [Ddavp] 0.2 mg PO DAILY 11/30/15 Fenofibrate [Tricor] 145 mg PO DAILY 11/30/15 Furosemide [Lasix] 40 mg PO DAILY 11/30/15 Pantoprazole [Protonix] 40 tab PO DAILY 11/30/15 Ropinirole HCl [Requip] 1 mg PO QHS 11/30/15 Mometasone/Formoterol [Dulera 200 Mcg/5 Mcg Inhaler] 2 puff INH RTBID #1 inhaler 02/26/16 Clonidine [Catapres] 0.1 mg PO DIRECTED PRN 05/23/16 Diclofenac Potassium 50 mg PO BID 05/23/16 Albuterol Sulfate Inhaler [Ventolin Hfa] 2 puff INH Q6H PRN PRN 06/12/16 Insulin Aspart [Novolog] 4 unit SQ AC 06/12/16 Insulin Glargine [Lantus] 26 unit SUBQ AC + HS 06/12/16 [place]-3 Acid Ethyl Esters 2 gm PO DAILY 06/12/16 Clonazepam 0.5 mg PO QHS #30 tablet 06/15/16 Losartan [Cozaar] 100 mg PO DAILY #30 tablet 06/15/16 Pregabalin [Lyrica] 100 mg PO QHS #30 capsule 06/16/16 Laboratory 07/30/16 07/30/16 07/30/16 07:45 07:45 07:45 WBC 6.13 RBC 4.39 Hgb 12.0 Hct 35.0 L MCV 79.7 L MCH 27.3 MCHC 34.3 RDW Std Deviation 12.5 Plt Count 226 MPV 10.2 Immature Gran % (Auto) 0.2 Neut % (Auto) 59.4 Lymph % (Auto) 29.0 Cotton % (Auto) 5.2 Eos % (Auto) 5.5 Baso % (Auto) 0.7 Immature Gran # (Auto) 0.01 Neut # (Auto) 3.64 Lymph # (Auto) 1.78 Cotton # (Auto) 0.32 Eos # (Auto) 0.34 Baso # (Auto) 0.04 PT 13.9 INR 1.04 APTT (Factor Assay) 29.6 Sodium Potassium Chloride Carbon Dioxide Anion Gap BUN Creatinine Estimated GFR/1.73 m2 BUN/Creatinine Ratio Glucose Calculated Osmolality Calcium Total Bilirubin AST ALT Alkaline Phosphatase Creatine Kinase Troponin T Ieg-G-Gjxrvmytizk Pept 126 Total Protein Albumin Globulin Albumin/Globulin Ratio LDL Cholesterol Direct Digoxin 07/30/16 07/30/16 07/30/16 07:45 07:45 07:45 WBC RBC Hgb Hct MCV MCH MCHC RDW Std Deviation Plt Count MPV Immature Gran % (Auto) Neut % (Auto) Lymph % (Auto) Cotton % (Auto) Eos % (Auto) Baso % (Auto) Immature Gran # (Auto) Neut # (Auto) Lymph # (Auto) Cotton # (Auto) Eos # (Auto) Baso # (Auto) PT INR APTT (Factor Assay) Sodium 137 Potassium 3.3 L Chloride 97 L Carbon Dioxide 26 Anion Gap 14 BUN 10 Creatinine 0.7 Estimated GFR/1.73 m2 > 60 BUN/Creatinine Ratio 14 Glucose 211 H Calculated Osmolality 279 Calcium 9.3 Total Bilirubin 0.40 AST 58 H ALT 45 H Alkaline Phosphatase 94 Creatine Kinase 250 H Troponin T < 0.010 Lkp-X-Foltantnpap Pept Total Protein 6.6 Albumin 4.2 Globulin 2.0 Albumin/Globulin Ratio 2.0 LDL Cholesterol Direct 96 Digoxin < 0.2 L Laboratory Tests 07/30/16 07/30/16 07/30/16 07:45 07:45 07:45 WBC RBC Hgb Hct MCV MCH MCHC RDW Std Deviation Plt Count MPV Immature Gran % (Auto) Neut % (Auto) Lymph % (Auto) Cotton % (Auto) Eos % (Auto) Baso % (Auto) Immature Gran # (Auto) Neut # (Auto) Lymph # (Auto) Cotton # (Auto) Eos # (Auto) Baso # (Auto) PT INR APTT (Factor Assay) Sodium 137 Potassium 3.3 L Chloride 97 L Carbon Dioxide 26 Anion Gap 14 BUN 10 Creatinine 0.7 Estimated GFR/1.73 m2 > 60 BUN/Creatinine Ratio 14 Glucose 211 H Calculated Osmolality 279 Calcium 9.3 Total Bilirubin 0.40 AST 58 H ALT 45 H Alkaline Phosphatase 94 Creatine Kinase 250 H Troponin T < 0.010 Dvh-Z-Vmzpdvmkmzj Pept Total Protein 6.6 Albumin 4.2 Globulin 2.0 Albumin/Globulin Ratio 2.0 LDL Cholesterol Direct 96 Digoxin < 0.2 L 07/30/16 07/30/16 07/30/16 07:45 07:45 07:45 WBC 6.13 RBC 4.39 Hgb 12.0 Hct 35.0 L MCV 79.7 L MCH 27.3 MCHC 34.3 RDW Std Deviation 12.5 Plt Count 226 MPV 10.2 Immature Gran % (Auto) 0.2 Neut % (Auto) 59.4 Lymph % (Auto) 29.0 Cotton % (Auto) 5.2 Eos % (Auto) 5.5 Baso % (Auto) 0.7 Immature Gran # (Auto) 0.01 Neut # (Auto) 3.64 Lymph # (Auto) 1.78 Cotton # (Auto) 0.32 Eos # (Auto) 0.34 Baso # (Auto) 0.04 PT 13.9 INR 1.04 APTT (Factor Assay) 29.6 Sodium Potassium Chloride Carbon Dioxide Anion Gap BUN Creatinine Estimated GFR/1.73 m2 BUN/Creatinine Ratio Glucose Calculated Osmolality Calcium Total Bilirubin AST ALT Alkaline Phosphatase Creatine Kinase Troponin T Fqj-Y-Pmmabjcvvqi Pept 126 Total Protein Albumin Globulin Albumin/Globulin Ratio LDL Cholesterol Direct Digoxin (Roddy Avina) Departure <Lizzie Penny - Last Filed: 07/30/16 12:33> - Departure Time of Disposition Order: 09:09 Certified Medical Emergency: Emergent <Roddy Avina - Last Filed: 08/01/16 10:52> - Departure DIAGNOSIS: Chest pain Qualifiers: Chest pain type: unspecified Qualified Code(s): R07.9 - Chest pain, unspecified Disposition: ADMITTED INPATIENT 09 Condition: Good Attestation - Scribe Verification/Attestation Scribe:: Lizzie Penny Acting as Scribe for:: Roddy Avina Scribe documention review:: This chart was documented by a scribe and accurately reflects the service the provider performed and the decisions made by the provider. <Lizzie Penny - Last Filed: 07/30/16 12:33> Physician Attestation - Physician Attestation I, the provider, attest to the following statement:: Roddy Avina Physician documentation Attestation:: This documentation recorded by the scribe accurately reflects the service I personally performed and the decisions made by me. <Roddy Avina - Last Filed: 08/01/16 10:52>
[2016-07-30 07:53] LABS: BASO% 0.7 % (0.0-0.8); EOS# 0.34 X1000 (0.0-0.7); EOS% 5.5 % (0.0-10.0); IMM GRAN# 0.01 X1000 (0.0-0.04); IMM GRAN% 0.2 % (0.0-0.5); LYMPH# 1.78 X1000 (1.2-3.4); MCH 27.3 PG (27-31); MCHC 34.3 g/dL (33-37); MCV 79.7 FL (81-99); MONO# 0.32 X1000 (0.11-0.59); MONO% 5.2 % (1.7-9.3); MPV 10.2 FL (7.4-10.4); NEUT% 59.4 % (42.2-75.2); PLT 226 X1000 (130-400); RBC 4.39 XMIL (4.2-5.4)
[2016-07-30] MEDS ORDERED: NITROGLYCERIN TOP ONE (07:56)
[2016-07-30] MEDS ORDERED: MORPHINE IV ONE (07:56)
[2016-07-30] MEDS ORDERED: ZOFRAN IV ONE (07:56)
[2016-07-30 08:10] LABS: INR 1.04 (0.86-1.15); PROTIME 13.9 Seconds (12.1-15.5)
[2016-07-30 08:11] LABS: PTT PL 29.6 Seconds (22.6-43.9)
[2016-07-30 08:12] LABS: AGAP 14; ALBUMIN 4.2 g/dL (3.5-5.0); ALKALINE PHOSPHATASE 94 U/L (32-104); BUN 10 mg/dL (8-22); CALCIUM 9.3 mg/dL (8.8-10.2); CHLORIDE 97 mmol/L (98-107); COSMO 279; DIGOXIN < 0.2 ng/mL (0.9-2.0); DIRECT LDL 96 mg/dL; GOT 58 U/L (10-30); GPT 45 U/L (10-36); POTASSIUM 3.3 mmol/L (3.5-5.1); SODIUM 137 mmol/L (136-145); TCO2 26 mmol/L (25-35); TOTAL PROTEIN 6.6 g/dL (6.3-8.3)
--- NOTE | 2016-07-30 08:43 | ED EKG INTERP ---
EKG Interpretation - EKG Time of EKG reading by physician:: 07:35 EKG Read and Signed by:: Roddy Avina EKG Interpretation (*Must complete 3 of following elements*): Abnormal Rate: 78 Rhythm: sinus rhythm with 1st degree AV block Comments: LBBB Attestation - Scribe Verification/Attestation Scribe:: Lizzie Penny Acting as Scribe for:: Roddy Avina Scribe documention review:: This chart was documented by a scribe and accurately reflects the service the provider performed and the decisions made by the provider.
--- NOTE | 2016-07-30 09:08 | Diag Imaging Result Document ---
PROCEDURE NAME: CHEST-PORTABLE - 07/30/2016 AP PORTABLE CHEST AT 0745 HOURS: FINDINGS: The appearance of the chest has not changed appreciably since 06/11/2016. There is a calcified granuloma in the left lower chest. IMPRESSION: Stable chest.
[2016-07-30 09:24] LABS: CK INDEX 1.2 (0.0-2.5); CK-MB 2.92 ng/mL (0.0-5.0)
[2016-07-30] MEDS ORDERED: TYLENOL PO PRN (09:51)
[2016-07-30] MEDS ORDERED: ZOFRAN PO PRN (09:51)
--- NOTE | 2016-07-30 10:36 | EKG Report ---
Test Performed on : 07/30/2016 07:35:07 AM Test Reason : chest pain Blood Pressure : / mmHG Vent. Rate : 078 BPM Atrial Rate : 078 BPM P-R Int : 228 ms QRS Dur : 146 ms QT Int : 462 ms P-R-T Axes : 072 062 073 degrees QTc Int : 526 ms Sinus rhythm. with 1st degree AV block. Left bundle branch block Abnormal ECG When compared with ECG of 11-JUN-2016 21:18, No significant change was found Unconfirmed Result
[2016-07-30 11:03] LABS: URINE CULTURE PL NEEDED? NO; URINE SOURCE CATH
[2016-07-30 11:13] LABS: BILIRUBIN URINE NEGATIVE (NEGATIVE); BLOOD URINE NEGATIVE (NEGATIVE); CLARITY SL. CLOUDY (CLEAR); COLOR YELLOW; LEUKOCYTES URINE NEGATIVE (NEGATIVE); NITRITE URINE NEGATIVE (NEGATIVE); PROTEIN URINE NEGATIVE (NEGATIVE); SP GRAVITY URINE 1.015; UROBILINOGEN URINE NORMAL
[2016-07-30 11:31] LABS: URINE EPITHELIAL CELLS <10 /HPF (<10)
--- NOTE | 2016-07-30 11:36 | EKG Report ---
Test Performed on : 07/30/2016 11:25:19 AM Test Reason : 2hour repeat Blood Pressure : / mmHG Vent. Rate : 081 BPM Atrial Rate : 081 BPM P-R Int : 212 ms QRS Dur : 142 ms QT Int : 456 ms P-R-T Axes : 054 -07 073 degrees QTc Int : 529 ms Sinus rhythm. with 1st degree AV block. Left bundle branch block Abnormal ECG When compared with ECG of 30-JUL-2016 07:35, (Unconfirmed) Questionable change in QRS axis Unconfirmed Result
[2016-07-30 12:51] LABS: CK INDEX 1.2 (0.0-2.5); CK-MB 2.46 ng/mL (0.0-5.0)
[2016-07-30] MEDS ORDERED: G.I. COCKTAIL PO ONE (13:01)
[2016-07-30] MEDS ORDERED: G.I. COCKTAIL ONE (13:03)
[2016-07-30] MEDS: NITROGLYCERIN TOP SCH ×3 (14:21→22:01)
[2016-07-30] MEDS: NS 1,000 ML IV SCH (14:33)
[2016-07-30] MEDS: MORPHINE IV PRN ×2 (14:33→21:59)
[2016-07-30 15:04] LABS: CK INDEX 1.3 (0.0-2.5); CK-MB 2.42 ng/mL (0.0-5.0)
--- NOTE | 2016-07-30 16:47 | Diag Imaging Result Document ---
PROCEDURE NAME: ABDOMEN FLAT/UPRIGHT - 07/30/2016 FLAT AND UPRIGHT ABDOMEN: FINDINGS: There is gas and stool present throughout the colon. There is no evidence of organomegaly or mass. IMPRESSION: Nonspecific abdomen.
[2016-07-30] MEDS: MIRALAX PO SCH ×2 (18:23→22:09)
[2016-07-30] MEDS: DULCOLAX PR SCH ×2 (18:23→22:38)
--- NOTE | 2016-07-30 18:33 | EKG Report ---
Test Performed on : 07/30/2016 5:56:26 PM Test Reason : CP Blood Pressure : / mmHG Vent. Rate : 089 BPM Atrial Rate : 089 BPM P-R Int : 204 ms QRS Dur : 144 ms QT Int : 438 ms P-R-T Axes : 050 009 072 degrees QTc Int : 532 ms Normal sinus rhythm. Left bundle branch block Abnormal ECG When compared with ECG of 30-JUL-2016 11:25, (Unconfirmed) No significant change was found Unconfirmed Result
--- NOTE | 2016-07-30 20:58 | EKG Report ---
Test Performed on : 07/30/2016 8:23:25 PM Test Reason : CP Blood Pressure : / mmHG Vent. Rate : 091 BPM Atrial Rate : 091 BPM P-R Int : 204 ms QRS Dur : 148 ms QT Int : 438 ms P-R-T Axes : 051 009 084 degrees QTc Int : 538 ms Normal sinus rhythm. Left bundle branch block Abnormal ECG When compared with ECG of 30-JUL-2016 17:56, (Unconfirmed) No significant change was found Unconfirmed Result
[2016-07-31] MEDS: NITROGLYCERIN TOP SCH ×2 (04:40→09:44)
[2016-07-31] MEDS: DULCOLAX PR SCH (04:43)
--- NOTE | 2016-07-31 04:52 | EKG Report ---
Test Performed on : 07/31/2016 04:10:57 AM Test Reason : CP Blood Pressure : / mmHG Vent. Rate : 099 BPM Atrial Rate : 099 BPM P-R Int : 200 ms QRS Dur : 140 ms QT Int : 402 ms P-R-T Axes : 047 007 097 degrees QTc Int : 515 ms Sinus rhythm. with premature atrial complexes. with aberrant conduction. Left bundle branch block Abnormal ECG When compared with ECG of 30-JUL-2016 20:23, (Unconfirmed) aberrant conduction. is now present Unconfirmed Result
[2016-07-31] MEDS: NS 1,000 ML IV SCH (05:36)
[2016-07-31] MEDS: MIRALAX PO SCH (08:33)
[2016-07-31 08:44] LABS: HEMATOCRIT 32.9 % (37.0-47.0); HEMOGLOBIN 11.1 g/dL (12.0-16.0); MCH 27.7 PG (27-31); MCHC 33.7 g/dL (33-37); MPV 10.4 FL (7.4-10.4); RBC 4.01 XMIL (4.2-5.4)
--- NOTE | 2016-07-31 09:08 | DISCHARGE SUMMARY ---
ADMISSION DATE: 07/30/2016 DISCHARGE DATE: DISCHARGE DIAGNOSES: 1. Chest pain. 2. Hypercholesterolemia. 3. Chronic reflux. 4. chronic obstructive pulmonary disease, Stable. 5. Diabetes with mild hyperglycemia. CONSULTATIONS: None. PROCEDURE: None BRIEF HOSPITAL COURSE: Patient is a 50-year-old female who was admitted as noted on the history of present illness, treated in usual fashion. Placed on rule out cardiac protocol. Thankfully, she had an uneventful course. On discharge her chest pain had completely resolved. She was able to ambulate without any difficulty. Enzymes were negative. The patient was continued on her home medications while she was in the hospital. DISPOSITION: The patient will be discharged home. She will continue all of her home medications without any changes. 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 TIME SPENT AT DISCHARGE: Thirty minutes was spent in discharge planning and instructions.
[2016-07-31 09:09] LABS: AGAP 9; ALBUMIN 3.3 g/dL (3.5-5.0); ALKALINE PHOSPHATASE 73 U/L (32-104); BUN 5 mg/dL (8-22); CALCIUM 7.2 mg/dL (8.8-10.2); CHLORIDE 108 mmol/L (98-107); COSMO 282; GOT 37 U/L (10-30); GPT 34 U/L (10-36); SODIUM 138 mmol/L (136-145); TCO2 21 mmol/L (25-35); TOTAL PROTEIN 5.2 g/dL (6.3-8.3)
[2016-07-31 09:51] LABS: POTASSIUM 2.7 mmol/L (3.5-5.1)
[2016-07-31] MEDS ORDERED: ZOFRAN ODT PO PRN (10:10)
--- NOTE | 2016-07-31 11:13 | HISTORY AND PHYSICAL ---
PRIMARY CARE PHYSICIAN: Dr. Deejay Rodriguez CHIEF COMPLAINT: Chest pain. HISTORY OF PRESENT ILLNESS: This is a 50-year-old female who presented to the emergency room complaining of substernal lower chest pain. It is nonradiating. She denied alleviating or exacerbating factors. She had no accompanying symptoms. No nausea or vomiting. When asked to point to the area pain she did point to the epigastric area. She was given 4 of morphine, as well as an inch of nitroglycerin in the emergency room. The pain did continue. Later in the day she was given a GI cocktail. She did state that her pain did subside after the GI cocktail. Her EKG showed a sinus rhythm with PACs and a left bundle branch block which she previously had. She did undergo a complete workup in August 2015 having an echocardiogram and a cardiac catheterization which revealed a very mild degree of coronary artery disease involving the mid LAD, the apical LAD and the PDA and EF of 50%. Normal LVEDP with no mitral regurgitation. No aortic stenosis. She was treated medically. PAST MEDICAL HISTORY: 1. Diabetes type 2. 2. CVA x3 coronary. 3. Coronary artery disease, hypertension, peripheral vascular disease. 4. COPD. 5. History of right breast cancer with her last chemo in 2015. 6. PAST SURGICAL HISTORY: Lumpectomy from the right breast cancer, hysterectomy and left-sided carotid artery stent. SOCIAL HISTORY: She does live with her son. She is disabled. She denies tobacco, alcohol or illicit drug use. ALLERGIES: Sulfa. HOME MEDICATIONS: A list will be obtained. LABORATORY DATA: WBC is 6.13, hemoglobin of 12, hematocrit of 35 and platelets of 226,000. Sodium is 137, potassium 3.3, BUN 10, creatinine 0.7 with a glucose of 211. Troponins were less than 0.010 x 5 sets. Urinalysis revealed 2+ glucose. Chest x-ray revealed a stable chest. No acute abnormality. Abdominal x-ray revealed gas and stool throughout the colon. No evidence of organomegaly or mass. ASSESSMENT AND PLAN: 1. Chest pain. The patient does point to her epigastric area when asked about area of pain. Her pain was relieved after a GI cocktail. She will be admitted. She will be placed on telemetry. We will identify her home medications and continue. We will continue with Nitrol ointment. We will monitor on telemetry. Cardiology will be consulted. 2. Diabetes type 2 with hyperglycemia. We will identify and continue her home medications. We will trend her labs. 3. Gastroesophageal reflux disease. 4. Chronic obstructive pulmonary disease. 5. History of cerebrovascular accident. 6. Constipation. 7. Others. PLAN: She will be admitted to the floor on telemetry. We will continue to trend cardiac enzymes. We will identify and continue her home medications. We will repeat a CBC and CMP in the morning. Further treatments pending hospital course. Dictated by AZ Bridges for Jacob Castro MD
[2016-07-31 11:54] VITALS: BP 140/65
== END 2016-07-31 13:54 | disposition home health service (06) ==
LOC: P.ED 07:20 → P.EDIPHOLD 10:06 → P.MEDSURG 13:16
PROVIDERS: ADMIT Family Medicine; ATTEND Family Medicine
DX: R07.2 Precordial pain (principal); E78.00 Pure hypercholesterolemia, unspecified; I10 Essential (primary) hypertension; K21.9 Gastro-esophageal reflux disease without esophagitis; J44.9 Chronic obstructive pulmonary disease, unspecified; E11.65 Type 2 diabetes mellitus with hyperglycemia; I44.7 Left bundle-branch block, unspecified; R11.0 Nausea; I25.10 Atherosclerotic heart disease of native coronary artery without angina pectoris; K59.00 Constipation, unspecified; F41.9 Anxiety disorder, unspecified; F32.9 Major depressive disorder, single episode, unspecified; R00.2 Palpitations; I73.9 Peripheral vascular disease, unspecified; G89.29 Other chronic pain; M79.7 Fibromyalgia; Z79.82 Long term (current) use of aspirin; Z79.899 Other long term (current) drug therapy; Z79.4 Long term (current) use of insulin; Z79.51 Long term (current) use of inhaled steroids; Z87.891 Personal history of nicotine dependence; Z86.73 Personal history of transient ischemic attack (TIA), and cerebral infarction without residual deficits; Z85.3 Personal history of malignant neoplasm of breast; Z92.21 Personal history of antineoplastic chemotherapy
CPT/HCPCS: 36415; 71010; 74020; 80053; 80162; 81001; 82550; 82553; 83721; 83880; 84484; 85025; 85027; 85610; 85730; 93005; 96374; 96375; J2270; J2405; J7030

== ENCOUNTER 2017-01-22 17:42 | Observation (INO) ==
[2017-01-22] MEDS ORDERED: ASPIRIN PO STA (18:01)
--- NOTE | 2017-01-22 18:07 | EKG Report ---
Test Performed on : 01/22/2017 5:43:21 PM Test Reason : CHEST PAIN Blood Pressure : / mmHG Vent. Rate : 084 BPM Atrial Rate : 084 BPM P-R Int : 192 ms QRS Dur : 090 ms QT Int : 426 ms P-R-T Axes : 055 023 053 degrees QTc Int : 503 ms Normal sinus rhythm. Possible Left atrial enlargement Nonspecific ST and T wave abnormality Prolonged QT Abnormal ECG No previous ECGs available Unconfirmed Result
--- NOTE | 2017-01-22 18:20 | PROVIDER DOCUMENTATION ---
HPI-Chest Pain - General Chief Complaint: Chest Pain Stated Complaint: Chest Pain Time Seen by Provider: 01/22/17 18:01 Source: patient Allergies/Adverse Reactions: Patient Allergies Allergy/AdvReac Type Severity Reaction Status Date / Time sulfamethoxazole Allergy ITCHING Verified 01/22/17 19:27 [From Bactrim] trimethoprim [From Bactrim] Allergy ITCHING Verified 01/22/17 19:27 Home Medications: Home Medication List Medication Instructions Recorded Confirmed Last Taken Type Amitriptyline HCl 50 mg PO QHS 11/29/15 01/22/17 07/29/16 History ATORVAstatin [Lipitor] 80 mg PO DAILY 11/30/15 01/22/17 07/29/16 History Aspirin [Ecotrin] 325 mg PO DAILY 11/30/15 01/22/17 07/29/16 History Clopidogrel Bisulfate [Plavix] 75 mg PO DAILY 11/30/15 01/22/17 07/29/16 History Desmopressin Acetate [Ddavp] 0.2 mg PO DAILY 11/30/15 01/22/17 07/29/16 History Fenofibrate [Tricor] 145 mg PO DAILY 11/30/15 01/22/17 07/29/16 History Furosemide [Lasix] 40 mg PO DAILY 11/30/15 01/22/17 07/29/16 History Pantoprazole [Protonix] 40 tab PO DAILY 11/30/15 01/22/17 07/29/16 History Ropinirole HCl [Requip] 1 mg PO QHS 11/30/15 01/22/17 07/29/16 History Mometasone/Formoterol [Dulera 200 2 puff INH RTBID #1 inhaler 02/26/16 01/22/17 07/29/16 Rx Mcg/5 Mcg Inhaler] Diclofenac Potassium 50 mg PO BID 05/23/16 01/22/17 07/29/16 History Albuterol Sulfate Inhaler 2 puff INH Q6H PRN PRN 06/12/16 01/22/17 07/29/16 History [Ventolin Hfa] Insulin Aspart [Novolog] 12 unit SQ AC 06/12/16 01/22/17 07/29/16 History Insulin Glargine [Lantus] 30 unit SUBQ AC + HS 06/12/16 01/22/1717 History [place]-3 Acid Ethyl Esters 2 gm PO DAILY 06/12/16 01/22/17 07/29/16 History Amlodipine Besylate [Norvasc] 5 mg PO BID 07/30/16 01/22/17 07/29/16 History Metoprolol [Lopressor] 50 mg PO DAILY 07/30/16 01/22/17 07/29/16 History Tizanidine HCl [Zanaflex] 2 mg PO DAILY 07/31/16 01/22/17 07/29/16 History Albuterol Sulfate [Albuterol 8.5 gm IH Q4-6H PRN PRN #2 12/09/16 01/22/17 Unknown Rx Sulfate Hfa] hfa.aer.ad Gabapentin [Gabapentin] 300 mg PO TID 01/22/17 01/22/17 Unknown History - History of Present Illness-CP Nature of Presenting Problem: 51. y.o female with PMH of CHF, HTN, DM, stroke x3 with left side hemiplagia brought by ambulance with complaints of chest pain. Pain is 7/10 substernal, with a tiggling and numbess radiating to the right arm. Pt reports having worsening orthopnea, increase in abd girth, pitting edema. Pt does not endorse, palpitation, nausea, vomiting, cough. Associated Symptoms: reports: shortness of breath (orthopnea) Nitro Today/Relief: provided by EMS Aspirin Treatment Today: provided by EMS Prior Chest Pain/Cardiac Workup: reports: cardiac cath Similar Symptoms Previously?: Yes Recently Seen Here or By Another Healthcare Provider: No Review of Systems - Adult - REVIEW OF SYSTEMS - ADULT Constitutional: reports: no symptoms reported Eyes: reports: no symptoms reported Ears, Nose, Mouth & Throat: reports: no symptoms reported Cardiovascular: reports: see HPI Respiratory: reports: see HPI Gastrointestinal: reports: see HPI Genitourinary: reports: no symptoms reported Musculoskeletal: reports: see HPI Integumentary: reports: no symptoms reported Neurological: reports: see HPI Psychiatric: reports: no symptoms reported Endocrine: reports: no symptoms reported Hematologic/Lymphatic: reports: no symptoms reported Allergic/Immunologic: reports: no symptoms reported All Other Systems: Reviewed and Negative Past History - Adult - PAST MEDICAL HISTORY-ADULT Review of Records: reports: Old Records Reviewed, Nursing Assessment Review Major Childhood Illnesses: reports: denies history Cardiovascular: reports: cardiac disease, CAD, CHF, HTN, PAD, palpitations, PVD Respiratory: reports: COPD Gastrointestinal: reports: GERD Obstetrical/Gynecological: reports: denies history Genitourinary: reports: denies history Musculoskeletal: reports: chronic pain, fibromyalgia Neurological: reports: CVA Psychiatric: reports: anxiety, depression Endocrine/Immune: reports: Diabetes Other Conditions: reports: denies history - PRIOR SURGERIES/PROCEDURES Surgical/Procedure History: reports: hysterectomy - PRIOR HOSPITALIZATIONS Prior Hospitalizations: reports: none - IMMUNIZATION STATUS Childhood Immunizations: See Nurse Assessment Flu Vaccine: See Nurse Assessment - FAMILY HISTORY Family History: reviewed, not pertinent Physical Exam-General - PHYSICAL EXAM-ADULT Initial Vital Signs Reviewed: Yes - CONSTITUTIONAL General Appearance: appears well, alert, no apparent distress - EYES Eyes: PERRL/EOMI - HEAD, EARS, NOSE, MOUTH & THROAT HENMT: normocephalic/atraumatic, moist mucous membranes - NECK Neck: non-tender, other (evidence of endarectomy - healed surgical scar) - RESPIRATORY Respiratory: chest non-tender, lungs clear, normal breath sounds - CARDIOVASCULAR Cardiovascular: regular rate, rhythm, other (+2 edema) - GASTROINTESTINAL (ABDOMEN) Abdominal Exam: normal bowel sounds, non tender (mild rigidity), other - MUSCULOSKELETAL Back Exam: normal inspection, no CVA tenderness Extremity: pedal edema, other - SKIN Integumentary: normal color - NEUROLOGIC Neurologic: grossly normal, focal weakness, other (Left sided weakness 3/5. Right sided stregnth 4/5) - PSYCHIATRIC Psych/Mental Status: normal mood/affect, normal thought content, oriented x 3 Progress - PLAN OF CARE/RESULTS Progress/Plan/Lab Results: Vital Signs - 8 hr 01/22/17 17:47 01/22/17 19:22 01/22/17 19:57 Temperature 98.7 F Pulse Rate 83 81 85 Respiratory Rate 20 14 21 Blood Pressure 148/80 188/97 158/104 O2 Sat by Pulse Oximetry 95 96 93 L 01/22/17 20:40 01/22/17 20:52 01/22/17 21:19 Temperature Pulse Rate 84 84 84 Respiratory Rate 16 20 18 Blood Pressure 173/108 188/84 181/98 O2 Sat by Pulse Oximetry 95 95 96 01/22/17 21:40 01/22/17 22:09 01/22/17 22:11 Temperature Pulse Rate 90 88 89 Respiratory Rate 15 21 18 Blood Pressure 181/105 177/115 189/68 O2 Sat by Pulse Oximetry 93 L 95 97 Laboratory Results - last 24 hr 01/22/17 01/22/17 01/22/17 18:40 18:40 18:40 WBC RBC Hgb Hct MCV MCH MCHC RDW Std Deviation Plt Count MPV Immature Gran % (Auto) Neut % (Auto) Lymph % (Auto) [place] % (Auto) Eos % (Auto) Baso % (Auto) Immature Gran # (Auto) Neut # (Auto) Lymph # (Auto) [place] # (Auto) Eos # (Auto) Baso # (Auto) PT INR APTT (Factor Assay) D-Dimer Sodium 135 L Potassium 3.3 L Chloride 96 L Carbon Dioxide 26 Anion Gap 13 BUN 14 Creatinine 0.8 Estimated GFR/1.73 m2 > 60 BUN/Creatinine Ratio 18 Glucose 330 H Calculated Osmolality 283 Calcium 9.6 Magnesium 1.5 Total Bilirubin 0.40 AST 46 H ALT 36 Alkaline Phosphatase 91 Creatine Kinase 72 Troponin T < 0.010 Ifg-W-Sooqgfvahsd Pept 171 Total Protein 7.8 Albumin 4.9 Globulin 3.0 Albumin/Globulin Ratio 2.0 Urine Source Urine Color Urine Clarity Urine pH Ur Specific [place] Urine Protein Urine Ketones Urine Blood Urine Nitrite Urine Bilirubin Urine Urobilinogen Urine Microscopic RBC Urine WBC Urine Microscopic WBC Ur Epithelial Cells Urine Bacteria Urine Glucose 01/22/17 01/22/17 01/22/17 18:40 18:40 20:26 WBC 5.28 RBC 4.46 Hgb 12.0 Hct 36.2 L MCV 81.2 MCH 26.9 L MCHC 33.1 RDW Std Deviation 12.7 Plt Count 216 MPV 10.0 Immature Gran % (Auto) 0.0 Neut % (Auto) 60.7 Lymph % (Auto) 31.1 [place] % (Auto) 4.4 Eos % (Auto) 3.4 Baso % (Auto) 0.4 Immature Gran # (Auto) 0.00 Neut # (Auto) 3.21 Lymph # (Auto) 1.64 [place] # (Auto) 0.23 Eos # (Auto) 0.18 Baso # (Auto) 0.02 PT 13.0 INR 0.91 APTT (Factor Assay) 33.0 D-Dimer < 0.22 L Sodium Potassium Chloride Carbon Dioxide Anion Gap BUN Creatinine Estimated GFR/1.73 m2 BUN/Creatinine Ratio Glucose Calculated Osmolality Calcium Magnesium Total Bilirubin AST ALT Alkaline Phosphatase Creatine Kinase 74 Troponin T Hau-A-Cfttpxsvjlk Pept Total Protein Albumin Globulin Albumin/Globulin Ratio Urine Source Urine Color Urine Clarity Urine pH Ur Specific [place] Urine Protein Urine Ketones Urine Blood Urine Nitrite Urine Bilirubin Urine Urobilinogen Urine Microscopic RBC Urine WBC Urine Microscopic WBC Ur Epithelial Cells Urine Bacteria Urine Glucose 01/22/17 01/22/17 20:26 21:10 WBC RBC Hgb Hct MCV MCH MCHC RDW Std Deviation Plt Count MPV Immature Gran % (Auto) Neut % (Auto) Lymph % (Auto) [place] % (Auto) Eos % (Auto) Baso % (Auto) Immature Gran # (Auto) Neut # (Auto) Lymph # (Auto) [place] # (Auto) Eos # (Auto) Baso # (Auto) PT INR APTT (Factor Assay) D-Dimer Sodium Potassium Chloride Carbon Dioxide Anion Gap BUN Creatinine Estimated GFR/1.73 m2 BUN/Creatinine Ratio Glucose Calculated Osmolality Calcium Magnesium Total Bilirubin AST ALT Alkaline Phosphatase Creatine Kinase Troponin T < 0.010 Nts-X-Sxmyuyehtgs Pept Total Protein Albumin Globulin Albumin/Globulin Ratio Urine Source CATH Urine Color YELLOW Urine Clarity CLEAR Urine pH 5.0 Ur Specific [place] 1.015 Urine Protein NEGATIVE Urine Ketones NEGATIVE Urine Blood NEGATIVE Urine Nitrite NEGATIVE Urine Bilirubin NEGATIVE Urine Urobilinogen NORMAL Urine Microscopic RBC <10 Urine WBC NEGATIVE Urine Microscopic WBC <10 Ur Epithelial Cells <10 Urine Bacteria NEGATIVE Urine Glucose 2+(250 mg/dL) A Orders Category Date Time Status Cardiac Monitoring DIRECTED Care 01/22/17 18:01 Active [facility] ORDERED Care 01/22/17 21:10 Active [facility] NOW Care 01/22/17 18:01 Active CHEST-2 VIEWS [RAD] Stat Exams 01/22/17 18:01 Completed CBC WITH ELECTRONIC DIFF [HEME] Stat Lab 01/22/17 18:40 Completed CK PROFILE [SP CHEM] Stat Lab 01/22/17 18:40 Completed CK PROFILE [SP CHEM] Stat Lab 01/22/17 20:26 Completed COMPREHENSIVE METABOLIC PANEL [CHEM] Stat Lab 01/22/17 18:40 Completed D-DIMER PL [COAG] Stat Lab 01/22/17 18:40 Completed MAGNESIUM [CHEM] Stat Lab 01/22/17 18:40 Completed PRO B-NATRIURETIC PEPTIDE Stat Lab 01/22/17 18:40 Completed PROTIME WITH INR PL [COAG] Stat Lab 01/22/17 18:[address] [COAG] Stat Lab 01/22/17 18:40 Completed TROPONIN T Stat Lab 01/22/17 18:40 Completed TROPONIN T Stat Lab 01/22/17 20:26 Completed urinalysis [URINALYSIS PL W/POSS RFLX CULT] [URINALYSIS Lab 01/22/17 21:10 Completed ] Stat Amlodipine [Norvasc] Med 01/22/17 22:18 Once 5 mg PO NOW ONE Aspirin Med 01/22/17 18:01 Discontinued 325 mg PO STAT STA Furosemide [Lasix] Med 01/22/17 20:59 Discontinued 60 mg IV NOW ONE EKG [EKG] Stat Ther 01/22/17 18:01 Draft EKG [EKG] Stat Ther 01/22/17 20:02 Draft Result Diagrams: 01/22/17 18:40 01/22/17 18:40 - REASSESSMENT Reassessment #1 Status: improving (improved after lasix, asa, nitro) Departure - Departure Date of Disposition Decision: 01/22/17 Time of Disposition Decision: 22:24 DIAGNOSIS: Chest pain Qualifiers: Chest pain type: unspecified Qualified Code(s): R07.9 - Chest pain, unspecified Disposition: ADMITTED INPATIENT 09 Certified Medical Emergency: Emergent Condition: Stable - Critical Care Note This patient required my direct & personal management of CC.: No Attestation - Physician/ MILAN Attestation Patient care was provided by Advanced Practice Provider:: No The physician spent face to face time with patient:: Yes Advanced Practice Provider documentation review:: Supervising physician onsite and consulted in the evaluation and care of this patient. The physician did have a face to face encounter with the patient.
[2017-01-22 18:42] LABS: MANUAL DIFF NEEDED? NO
[2017-01-22 18:46] LABS: BASO% 0.4 % (0.0-0.8); EOS# 0.18 X1000 (0.0-0.7); EOS% 3.4 % (0.0-10.0); HEMATOCRIT 36.2 % (37.0-47.0); LYMPH# 1.64 X1000 (1.2-3.4); LYMPH% 31.1 % (20.5-51.1); MCH 26.9 PG (27-31); MCHC 33.1 g/dL (33-37); MCV 81.2 FL (81-99); MONO# 0.23 X1000 (0.11-0.59); MONO% 4.4 % (1.7-9.3); NEUT% 60.7 % (42.2-75.2); PLT 216 X1000 (130-400); RBC 4.46 XMIL (4.2-5.4)
[2017-01-22 19:01] LABS: INR 0.91 (0.86-1.15)
--- NOTE | 2017-01-22 19:09 | Diag Imaging Result Doc PS360 ---
CHEST-2 VIEWS - 01/22/2017 INDICATION: CP TECHNIQUE: COMPARISON: 12/09/2016 FINDINGS: Stable trace linear atelectasis in the lingula. No new or focal infiltrates. Heart size is normal. IMPRESSION: No acute disease. Electronically signed by Hawk Johnson 01/22/2017 7:07 PM
[2017-01-22 19:21] LABS: AGAP 13; ALBUMIN 4.9 g/dL (3.5-5.0); ALKALINE PHOSPHATASE 91 U/L (32-104); BUN 14 mg/dL (8-22); CALCIUM 9.6 mg/dL (8.8-10.2); CHLORIDE 96 mmol/L (98-107); CK PROFILE 72 U/L (24-173); COSMO 283; GOT 46 U/L (10-30); GPT 36 U/L (10-36); MAGNESIUM 1.5 mg/dL (1.5-2.7); POTASSIUM 3.3 mmol/L (3.5-5.1); SODIUM 135 mmol/L (136-145); TCO2 26 mmol/L (25-35); TOTAL PROTEIN 7.8 g/dL (6.3-8.3)
--- NOTE | 2017-01-22 20:12 | EKG Report ---
Test Performed on : 01/22/2017 8:08:36 PM Test Reason : CP Blood Pressure : / mmHG Vent. Rate : 081 BPM Atrial Rate : 081 BPM P-R Int : 192 ms QRS Dur : 088 ms QT Int : 400 ms P-R-T Axes : 051 027 056 degrees QTc Int : 464 ms Normal sinus rhythm. Possible Left atrial enlargement Possible Anterior infarct , age undetermined Abnormal ECG When compared with ECG of 22-JAN-2017 17:43, (Unconfirmed) Borderline criteria for Anterior infarct are now present Unconfirmed Result
[2017-01-22] MEDS ORDERED: LASIX IV ONE (20:59)
[2017-01-22 21:24] LABS: URINE CULTURE PL NEEDED? NO
[2017-01-22 21:58] LABS: BILIRUBIN URINE NEGATIVE (NEGATIVE); BLOOD URINE NEGATIVE (NEGATIVE); CLARITY CLEAR (CLEAR); COLOR YELLOW; LEUKOCYTES URINE NEGATIVE (NEGATIVE); NITRITE URINE NEGATIVE (NEGATIVE); PROTEIN URINE NEGATIVE (NEGATIVE); SP GRAVITY URINE 1.015; UROBILINOGEN URINE NORMAL
[2017-01-22 22:06] LABS: URINE SOURCE CATH
[2017-01-22 22:07] LABS: URINE EPITHELIAL CELLS <10 /HPF (<10); URINE RBC <10 /HPF (<10); URINE WBC <10 /HPF (<10)
[2017-01-22] MEDS ORDERED: NORVASC PO ONE (22:18)
--- NOTE | 2017-01-22 22:26 | ED EKG INTERP ---
This chart was entered by Jamia Smyth Scribe, acting as scribe for Wilbur Robison MD. EKG Interpretation - EKG Time of EKG reading by physician:: 20:08 EKG Read and Signed by:: Wilbur Robison EKG Interpretation (*Must complete 3 of following elements*): Normal Rate: 81 Rhythm: NSR QRS: poor R wave progression Comments: Abnormal ECG Attestation - Physician/ MILAN Attestation Patient care was provided by Advanced Practice Provider:: No The physician spent face to face time with patient:: Yes Advanced Practice Provider documentation review:: Supervising physician onsite and consulted in the evaluation and care of this patient. The physician did have a face to face encounter with the patient. This chart was documented by the indicated scribe, (Jamia Smyth Scribe) and accurately reflects the services I performed and decisions made by me, Wilbur Robison MD, as attested by the provider's signature.
[2017-01-22] MEDS ORDERED: ZOFRAN IV PRN (23:16)
[2017-01-22] MEDS: TYLENOL PO PRN (23:54)
[2017-01-23] MEDS: NORVASC PO SCH ×3 (01:12→22:01)
[2017-01-23] MEDS: REQUIP PO SCH ×2 (01:12→21:59)
[2017-01-23] MEDS: ZANAFLEX PO SCH ×2 (01:12→22:01)
[2017-01-23] MEDS: LIPITOR PO SCH ×2 (01:12→22:00)
[2017-01-23] MEDS ORDERED: ELAVIL PO SCH ×2 (02:00→06:48)
--- NOTE | 2017-01-23 06:08 | EKG Report ---
Test Performed on : 01/23/2017 05:52:22 AM Test Reason : cp Blood Pressure : / mmHG Vent. Rate : 082 BPM Atrial Rate : 082 BPM P-R Int : 206 ms QRS Dur : 090 ms QT Int : 424 ms P-R-T Axes : 061 045 070 degrees QTc Int : 495 ms Normal sinus rhythm. Possible Left atrial enlargement Nonspecific T wave abnormality Prolonged QT Abnormal ECG When compared with ECG of 22-JAN-2017 20:08, (Unconfirmed) No significant change was found Confirmed by Juan Park MD ([id number]) on 01/28/2017 6:48:17 PM
[2017-01-23] MEDS ORDERED: HUMULIN R (PARKWAY) SUBQ SCH (07:00)
[2017-01-23] MEDS: DULERA 200 MCG/5 MCG INHALER INH SCH ×2 (08:25→19:39)
[2017-01-23] MEDS: FISH OIL CONCENTRATE PO SCH (08:31)
[2017-01-23] MEDS: NEURONTIN PO SCH ×3 (08:32→16:35)
[2017-01-23] MEDS: TRICOR PO SCH (08:32)
[2017-01-23] MEDS: ASPIRIN EC PO SCH (08:32)
[2017-01-23] MEDS: LASIX PO SCH (08:32)
[2017-01-23] MEDS: DDAVP PO SCH (08:32)
[2017-01-23] MEDS: PLAVIX PO SCH (08:32)
[2017-01-23] MEDS: LOPRESSOR PO SCH (08:34)
[2017-01-23] MEDS ORDERED: PROTONIX PO SCH (09:00)
[2017-01-23] MEDS ORDERED: LEXISCAN ONE (11:36)
[2017-01-23] MEDS: LANTUS INSULIN (PARKWAY) SUBQ SCH ×2 (14:59→22:02)
[2017-01-23] MEDS: LOVENOX SUBQ SCH (14:59)
--- NOTE | 2017-01-23 15:20 | Diag Imaging Result Document ---
PROCEDURE NAME: MYOCARDIAL PERF SCAN, STR/REST - 01/23/2017 REQUESTING PHYSICIAN: Dr. Roddy Neves INDICATION: Chest pain. DESCRIPTION: The patient came into the nuclear lab and received a rest injection of technetium 99m sestamibi 13.8 mCi. Multiple tomographic views of the cardiac structure were obtained at rest. Subsequently the patient underwent Lexiscan protocol per Dr. Neves. At peak infusion was injected with technetium 99 sestamibi 38.9 mCi. Multiple tomographic views of the cardiac structure were obtained following the completion of the exercise protocol. SUMMARY OF THE MYOCARDIAL PERFUSION PORTION OF THE STUDY: Poststress tomographic views of the left ventricle showed normal homogeneous distribution of radiotracer throughout the entire left ventricular myocardium. There is no evidence of any postexercise defect. Rest images showed normal perfusion. The polar plots revealed the same. There is no evidence of neither inducible ischemia nor myocardial scar. Gated SPECT showed normal left ventricular systolic function. Ejection fraction was 71% with normal ventricular volumes and no wall motion abnormality. Lung/heart ratio is normal. TID is normal. CONCLUSIONS: 1. Normal poststress myocardial perfusion scan. There is no scintigraphic evidence of pharmacologically induced myocardial ischemia. 2. Normal left ventricular systolic function. Ejection fraction is estimated at 71% with normal ventricular volumes and no wall motion abnormality. 3. This study represents a low risk for ischemic events. Clinical correlation is recommended. cc: MD Blanco Tello MD
[2017-01-23] MEDS: HUMALOG DOSE (PARKWAY) SUBQ SCH (16:34)
[2017-01-23] MEDS: ULTRAM PO PRN ×2 (16:35→23:13)
--- NOTE | 2017-01-23 16:42 | HISTORY AND PHYSICAL ---
CHIEF COMPLAINT: Chest pain and left leg pain. HISTORY OF PRESENT ILLNESS: Mrs. Elaine is a 51-year-old female with multiple medical problems including CVA x3 with left-sided hemiparesis, CAD, history of breast cancer and type 2 diabetes, who presents with acute left leg pain that began on . This was followed by a midsternal chest pain which is nonradiating and continues to be ongoing at this time. She does report some shortness of breath but no abdominal pain. No nausea, vomiting, no diarrhea. She denies any recent fevers or chills. She came to the ER for evaluation. In the ER she had labs and diagnostics done. Her chemistry panel was unremarkable. Chest x-ray did not show anything acute. An EKG showed sinus rhythm with nonspecific ST changes. She has been given aspirin and has had a Lexiscan stress test this morning, which is currently pending. D- dimer is negative. She is now going to be admitted for treatment and evaluation. PAST MEDICAL HISTORY: 1. CVA x3 with left-sided hemiparesis. 2. History of nonobstructive CAD. 3. Diabetes mellitus. 4. COPD. 5. History of breast cancer. 6. Hypertension. 7. Peripheral vascular disease. 8. Depression. 9. GERD. 10. Chronic pain. SURGICAL HISTORY: She has had a lumpectomy, hysterectomy, left carotid artery stenting. She has also had a hysterectomy. SOCIAL HISTORY: Patient quit smoking in 2013. She had a 30 pack year history. She denies alcohol or drug use. She is wheelchair bound. FAMILY HISTORY: Significant for CAD. REVIEW OF SYSTEMS: Fourteen-point review of systems obtained and found to be negative with the exception of the HPI. ALLERGIES: To Bactrim. HOME MEDICATIONS: Albuterol every 4-6 hours. Ventolin HFA, 2 puffs inhaled every 6 hours. Amitriptyline 50 mg p.o. at bedtime. Norvasc 5 mg b.i.d. Aspirin 325 mg daily. Lipitor 80 mg daily. Plavix 75 mg daily. DDAVP 0.2 mg p.o. daily. Pristiq ER 50 mg daily. Diclofenac 50 mg p.o. t.i.d. Tricor 145 mg p.o. daily. Lasix 40 mg daily. Neurontin 300 mg p.o. t.i.d. NovoLog 12 units subcu a.c. 30 units subcutaneous as directed. Lopressor 50 mg daily. [place]-3 2 g daily. Protonix 40 mg daily. KCl 10 mEq p.o. daily. Requip 1 mg at bedtime. Zanaflex 2 mg p.o. daily. PHYSICAL EXAMINATION: VITAL SIGNS: Blood pressure is 159/76, heart rate is 87, respiratory rate 18, O2 saturation 100% on room air. Temperature is 97.8 degrees. GENERAL: This is a chronically ill-appearing 51-year-old female, lying in hospital bed. No acute distress. NEUROLOGIC: The patient is awake and she is oriented. She has significant left -sided weakness. HEENT: Head is atraumatic, normocephalic. Her pupils are equal, round, and reactive to light. Oral mucosa is moist. Trachea is midline. No JVD. CHEST: Clear to auscultation bilaterally. CV: Regular rate and rhythm. S1, S2 is noted. No murmurs, gallops, clicks, or rubs. GI: Soft, nondistended, nontender. Bowel sounds are positive. EXTREMITIES: Left lower extremity with trace edema. Right lower extremity without edema. Both lower extremities with trace pulses bilaterally. DIAGNOSTIC DATA: Chest x-ray shows trace pleural effusion on the left. EKG, sinus rhythm with nonspecific ST-T abnormalities. Hematology: WBC 5.28, hemoglobin 12, hematocrit 36.2, platelet 216,000. INR is 0.91. D-dimer 0.22. Sodium 135, potassium 3.3, chloride 96, CO2 26, anion gap 13, BUN 14, creatinine 0.8, glucose 332, calcium 9.6, magnesium 1.5. T bilirubin 0.4, AST 46, ALT 36, alkaline phosphatase 91, troponin is negative. Albumin 4.9. UA is negative. ASSESSMENT/PLAN: 1. Chest pain: Atypical. She has had multiple workups in the past. She is on Plavix and aspirin. We will do a Lexiscan stress test today and evaluate further. She is at a high risk for PE but her D-dimer is negative, she is not tachycardic or hypoxic. We will go ahead and check a lower extremity Doppler. We will continue to trend her enzymes. 2. Diabetes mellitus: Continue her medications. Add pattern sugars, sliding scale insulin. 3. Left lower extremity edema: Checking a venous Doppler. No signs of cellulitis. 4. Hypertension: Chronic and stable. Continue home medications. 5. Chronic obstructive pulmonary disease: Chronic and stable. Continue home medications. 6. Deep vein thrombosis prophylaxis will be provided with Lovenox. Further recommendations to follow. Dictated by AZ Garcia for Blanco Neves MD cc: AZ Garcia MD pt examined, agree with above, examined, seen face to face, CV exam is RRR, we will pursue noninvasive imaging and followup on chest pain APENOT MTDD
--- NOTE | 2017-01-23 16:51 | Extremity Venous Study ---
EXAM: Venous U/S Left Leg HISTORY: r/o dvt TECHNIQUE: Compression venous ultrasound of the left lower extremity with color Doppler. COMMENT: The deep veins of the left leg are compressible and demonstrate normal color Doppler flow. IMPRESSION: No evidence of deep venous thrombosis. Electronically signed by Tobi James 01/23/2017 4:49 PM
[2017-01-24] MEDS ORDERED: PROTONIX PO SCH (07:00)
[2017-01-24 07:24] VITALS: BP 144/61
[2017-01-24] MEDS: HUMALOG DOSE (PARKWAY) SUBQ SCH (07:44)
[2017-01-24] MEDS: ULTRAM PO PRN (07:45)
[2017-01-24] MEDS: DULERA 200 MCG/5 MCG INHALER INH SCH (08:21)
[2017-01-24] MEDS: LOPRESSOR PO SCH (08:52)
[2017-01-24] MEDS: NEURONTIN PO SCH ×2 (08:52→12:27)
[2017-01-24] MEDS: ASPIRIN EC PO SCH (08:52)
[2017-01-24] MEDS: LASIX PO SCH (08:52)
[2017-01-24] MEDS: FISH OIL CONCENTRATE PO SCH (08:52)
[2017-01-24] MEDS: NORVASC PO SCH (08:53)
[2017-01-24] MEDS: PLAVIX PO SCH (08:53)
[2017-01-24] MEDS: DDAVP PO SCH (08:53)
[2017-01-24] MEDS: TRICOR PO SCH (08:53)
[2017-01-24] MEDS ORDERED: PRISTIQ ER PO SCH (09:00)
[2017-01-24] MEDS: LANTUS INSULIN (PARKWAY) SUBQ SCH (09:01)
[2017-01-24] MEDS ORDERED: KLOR-CON PO ONE (12:01)
[2017-01-24] MEDS: LOVENOX SUBQ SCH (12:27)
[2017-01-24] MEDS: TYLENOL PO PRN (12:27)
--- NOTE | 2017-01-25 04:56 | DISCHARGE SUMMARY ---
ADMISSION DATE: 01/22/2017 DISCHARGE DATE: 01/24/2017 Please see H and P for admission details. ADMISSION DIAGNOSIS: Atypical chest pain. DISCHARGE DIAGNOSES: 1. Atypical chest pain. 2. Type 2 diabetes. 3. Hypertension. 4. History of cerebrovascular accident with left-sided hemiplegia. HISTORY OF PRESENT ILLNESS: Briefly, this is a 51-year-old female, very young for her multiple medical problems including CVA and CAD, who presents with atypical chest pain. She does have risk factors for coronary artery disease including CVA, diabetes, hypertension, peripheral vascular disease. She was admitted. She was placed on aspirin, Plavix. A Lexiscan scan was ordered. She had no evidence of PE. I believe her D-dimer was negative and her lower extremity Dopplers were negative. Her myocardial perfusion scan was also negative for perfusion defect. She did have a little bit of chest pain during the test. The patient the following day has essentially had resolution of her symptoms. Her vital signs were stable, afebrile. Pulmonary and cardiac exam regular rate and rhythm and clear auscultation. She was interested in pursuing rehab options but as she was an observation patient we had to discharge her back home. DISCHARGE MEDICATIONS: Albuterol, amitriptyline 50, Norvasc 5 b.i.d., Ecotrin 325 daily, Lipitor 80 daily, Plavix 75 daily, desmopressin 0.2 daily, Pristiq 50 daily, diclofenac 50 t.i.d., TriCor 145 daily, Lasix 40 daily, gabapentin 300 t.i.d., NovoLog 12 b.i.d., Lantus 30 b.i.d., Lopressor 50 daily, Mometasone b.i.d., omega-3 fatty acids daily, Protonix 40 daily, Klor-Con 10 daily, Requip 1 daily, Zanaflex 2 daily. DISCHARGE CONDITION: Stable. cc: MD Deejay Harp MD
== END 2017-01-24 15:10 | disposition home health service (06) ==
LOC: P.ED 17:42 → P.MEDSURG 17:42
PROVIDERS: ATTEND Internal Medicine